=== PATIENT | female | born 1945 | race Caucasian/White ===

== ENCOUNTER 2019-10-11 19:34 | Inpatient (IN) | payer MEDICARE, BC, SELFPAY ==
[2019-10-11] VITALS (13 sets, daily range): BP systolic 139–149; BP diastolic 67–78; PULSE 84–107; RESP 18–34; TEMP 36.2–36.8; O2SAT 78–100; BMI 23.8; BMI 24.7
--- NOTE | 2019-10-11 19:50 | EKG12_ITS ---
Test Reason : Blood Pressure : / mmHG Vent. Rate : 098 BPM Atrial Rate : 098 BPM P-R Int : 130 ms QRS Dur : 066 ms QT Int : 344 ms P-R-T Axes : 067 054 080 degrees QTc Int : 439 ms Sinus rhythm with Premature atrial complexes Nonspecific ST abnormality Abnormal ECG Confirmed by SARAHI MORENO, GREGORIO ([id number]), newspaper editor TANO MARIE ([id number]) on 10/13/2019 8:56:48 AM Referred By: Jaciel Lyons Confirmed By:GREGORIO CMCLAIN MD
--- NOTE | 2019-10-11 19:51 | ED.VIS.DYS ---
History of Present Illness Chief Complaint: Cough Informant: Patient, Spouse/S.O., Relative Onset: Weeks - several Timing: Continuous Quality: - - sob x several days, worse today Current Severity: Moderate Maximum Severity: Moderate Worsened by: Coughing, Exertion Relieved by: Rest Associated Symptoms: Cough, Rhinorrhea, - - generalized weakness. Negative for: Fever Chest Pain: None Narrative: Patient had a left pneumonectomy 50 years or so ago because of bleeding and now has a bronchiectasis. She does not follow with a juvenile justice specialist and states she does not see her PCP anymore. She has a chronic cough but has felt like she had a respiratory illness for several weeks. Now that she has been short of breath for several days and it is worse now, she presents to the ER. States she has been malaised and fatigued and sitting more than usual for the last couple days because of that, and has had some swelling in her legs presumably related to sitting. She has no known heart disease. She denies any fevers or chest pain. The cough is nonproductive. - Past Medical History (1) HLD (hyperlipidemia) Status: Chronic (2) Bronchiectasis Status: Chronic Past Medical History - Allergies and Home Meds Allergies/Adverse Reactions: Allergies Penicillins Allergy (Verified 10/11/19 19:37) Hives Sulfa (Sulfonamide Antibiotics) Allergy (Verified 10/11/19 19:37) Hives Primary Care Physician: NOT,DEFINED [NON-STAFF] - Lives: With Family Smoking Status: Never smoker Review of Systems General: Reports: Malaise. Denies: Chills, Fever, Sweats Eyes: Denies: Visual changes - bilaterally, Diplopia ENT: Reports: Left ear pain - Chronic, unchanged; I keep cotton in it all the time because it hurts when air hits it. Denies: Rhinorrhea, Sore throat Cardiovascular: Denies: Chest pain, Palpitations Respiratory: Reports: Dyspnea, Cough, Dyspnea on exertion. Denies: Sputum Gastrointestinal: Denies: Abdominal pain, Nausea, Vomiting, Diarrhea, Melena, Hematochezia Genitourinary: Denies: Dysuria, Hematuria, Frequency Musculoskeletal: Reports: Swelling. Denies: Neck pain, Back pain, Extremity Pain Skin: Denies: Rash, Wounds Neurological: Denies: Headache, Weakness, Numbness Physical Exam Vital Signs/Narrative: Vital Signs Temp Pulse Resp BP Pulse Ox 10/11/19 19:47 32 H 78 10/11/19 19:35 97.1 F L 105 H 18 149/77 H 85 Inital Vital Signs reviewed: Yes General: Well nourished, Well developed, Cachectic - Thin, Acute Distress - Mild respiratory. Appears malaised. Head: Normocephalic, Atraumatic Eyes: Perrl, EOMI ENT: Moist mucous membranes, - - Posterior oropharynx clear, no erythema. Airway patent without stridor. Right TM and EAC normal. After pt removes cotton from left EAC, it is unremarkable and the tympanic membrane is white opaque but without erythema or perforation/discharge. Neck: Supple, Nontender, No lymphadenopathy, No JVD, - - Trachea relatively midline Cardiovascular: Regular rate, Regular rhythm, No murmurs Respiratory: Chest nontender, Rales - caudal half of right lung, Rhonchi - Throughout right lung, Wheezing - Expiratory, Diminished - Throughout left side Abdomen: Soft, Nontender, Nondistended, Normal bowel sounds Back: Nontender, Normal Inspection Extremities: Nontender, Edema - 1+ bilateral lower extremities to knees, symmetric Skin: Normal color, No rash, No Trauma Neurological: Alert, Oriented x3, Cranial nerves II-XII grossly intact, Normal Strength - Symmetric, weak all over, Normal Sensation Psychological: Normal affect, Normal Mood Diagnostic/Tx/Re-eval Chest X-Ray - ED: 1 View, Read by ED Physician, Chronic Changes, Right Infiltrate 10/11/19 20:10 Chest 1 View (Portable) [RAD] Stat Laboratory Results 10/11/19 10/11/19 10/11/19 19:55 19:55 19:55 WBC 12.0 H RBC 4.84 Hgb 14.6 Hct 46.9 MCV 96.9 MCH 30.2 MCHC 31.1 L RDW Std Deviation 55.7 H RDW Coeff of James 15.7 H Plt Count 222 MPV 10.9 Immature Gran % (Auto) 1.200 H Neut % (Auto) 78.9 H Lymph % (Auto) 9.1 L Bullitt % (Auto) 10.4 H Eos % (Auto) 0.1 Baso % (Auto) 0.3 Absolute Neuts (auto) 9.5 H Absolute Lymphs (auto) 1.10 Nucleated RBC % 0.2 PT 13.7 INR 1.1 APTT 25.7 Specimen Type Sample Site pH Bicarbonate Actual POC Total CO2 Base Excess O2 Saturation ABG pCO2 ABG pO2 Segundo Test O2 Delivery Device Blood Gas Notified Whom Sodium 143 Potassium 3.7 Chloride 105 Carbon Dioxide 36.0 H Anion Gap 2 L BUN 24 H Creatinine 0.51 L Estim Creat Clear Calc 36.68 Est GFR (MDRD) Af Amer 152 Est GFR (MDRD) Non-Af 125 BUN/Creatinine Ratio 47.2 H Glucose 123 H Lactic Acid Calcium 9.5 Total Bilirubin 0.50 AST 20 ALT 39 Alkaline Phosphatase 88 Troponin I 0.157 H B-Natriuretic Peptide Total Protein 7.2 Albumin 3.4 Globulin 3.8 Albumin/Globulin Ratio 0.9 Urine Color Urine Clarity Urine pH Ur Specific [place] Urine Protein Urine Glucose (UA) Urine Ketones Urine Occult Blood Urine Nitrite Urine Bilirubin Urine Urobilinogen Ur Leukocyte Esterase 10/11/19 10/11/19 10/11/19 19:55 19:55 20:06 WBC RBC Hgb Hct MCV MCH MCHC RDW Std Deviation RDW Coeff of James Plt Count MPV Immature Gran % (Auto) Neut % (Auto) Lymph % (Auto) Bull[place] % (Auto) Eos % (Auto) Baso % (Auto) Absolute Neuts (auto) Absolute Lymphs (auto) Nucleated RBC % PT INR APTT Specimen Type ART Sample Site L Radial pH 7.43 Bicarbonate Actual 38.4 H POC Total CO2 40 Base Excess 14 H O2 Saturation 69 L ABG pCO2 58.3 H ABG pO2 37 L* Segundo Test POS O2 Delivery Device Room Air Blood Gas Notified Whom ED Sodium Potassium Chloride Carbon Dioxide Anion Gap BUN Creatinine Estim Creat Clear Calc Est GFR (MDRD) Af Amer Est GFR (MDRD) Non-Af BUN/Creatinine Ratio Glucose Lactic Acid 1.2 Calcium Total Bilirubin AST ALT Alkaline Phosphatase Troponin I B-Natriuretic Peptide 483.5 H Total Protein Albumin Globulin Albumin/Globulin Ratio Urine Color Urine Clarity Urine pH Ur Specific [place] Urine Protein Urine Glucose (UA) Urine Ketones Urine Occult Blood Urine Nitrite Urine Bilirubin Urine Urobilinogen Ur Leukocyte Esterase 10/11/19 20:40 WBC RBC Hgb Hct MCV MCH MCHC RDW Std Deviation RDW Coeff of James Plt Count MPV Immature Gran % (Auto) Neut % (Auto) Lymph % (Auto) [place] % (Auto) Eos % (Auto) Baso % (Auto) Absolute Neuts (auto) Absolute Lymphs (auto) Nucleated RBC % PT INR APTT Specimen Type Sample Site pH Bicarbonate Actual POC Total CO2 Base Excess O2 Saturation ABG pCO2 ABG pO2 Segundo Test O2 Delivery Device Blood Gas Notified Whom Sodium Potassium Chloride Carbon Dioxide Anion Gap BUN Creatinine Estim Creat Clear Calc Est GFR (MDRD) Af Amer Est GFR (MDRD) Non-Af BUN/Creatinine Ratio Glucose Lactic Acid Calcium Total Bilirubin AST ALT Alkaline Phosphatase Troponin I B-Natriuretic Peptide Total Protein Albumin Globulin Albumin/Globulin Ratio Urine Color Yellow Urine Clarity Clear Urine pH 5.0 Ur Specific [place] 1.030 Urine Protein 30 H Urine Glucose (UA) Normal Urine Ketones 5 H Urine Occult Blood 25 H Urine Nitrite Negative Urine Bilirubin Negative Urine Urobilinogen 1 H Ur Leukocyte Esterase 25 H - Rhythm Strip Rhythm Strip: Sinus Tach Rate: 105 Ectopy: None - EKG Initial EKG Interpretation: No Acute Injury Pattern, Sinus Tachycardia Prior: Unchanged Treatment - Dyspnea: Oxygen, Albuterol, Atrovent Repeat Evaluation: Improved - Medical Decision Making Patient doing much better after breathing treatment but still hypoxic. However, she is doing well on a nasal cannula, at 98% now that we have a good reading. Initially we did not so we did an ABG before putting her on oxygen and her oxygen saturations were very low at 69% with a PO2 of 37. She was immediately put on oxygen prior to getting the results of that. Her x-ray shows chronic changes in the right lung, I think it looks more dense and consistent with infiltrate, radiology's interpretation was that there was no superimposed acute pulmonary process. Clinically I think treating her like pneumonia is appropriate given the history. She does not require ICU right now given her vital signs and clinical stability. Discussed with hospitalist for admission and started on antibiotics along with Solu-Medrol. Given its adequate coverage for community-acquired pneumonia, I started her on Rocephin and azithromycin, but given her bronchiectasis I agree with the next dose being Zosyn instead of Rocephin. Blood cultures were sent prior to starting antibiotics. ED Disposition - Plan for ED Patient: Disposition: [facility] Diagnosis: Bronchiectasis, Sepsis due to pneumonia, CAP (community acquired pneumonia), Acute hypoxemic respiratory failure Referrals: NOT,DEFINED [NON-STAFF] -
--- NOTE | 2019-10-11 20:10 | RAD_ITS ---
STUDY: X-RAY CHEST REASON FOR EXAM: Female, 74 years old. Shortness of breath, cough, Hx bronchiectasis and left pneumonectomy TECHNIQUE: Single AP portable view of the chest. COMPARISON: 02/24/2016 FINDINGS: Stable opacification in the left hemithorax due to previous pneumonectomy. Stable pleural calcifications. Chronic interstitial changes in the right lung without a superimposed infiltrate or effusion. There is no demonstrated pleural abnormality. Normal size heart. Normal mediastinum and linda. Normal visualized pulmonary arteries. There is atherosclerotic calcification of the aortic arch with tortuosity. There are diffuse degenerative changes of the visualized thoracic spine. Normal visualized ribs, clavicles, and shoulders. There is no demonstrated abnormality of the visualized soft tissue structures of the upper abdomen. RAD/Chest 1 View (Portable) IMPRESSION: Chronic interstitial changes throughout the right lung without a superimposed acute pulmonary process Changes consistent with previous left pneumonectomy Electronically Signed: Marcos Ott MD at 20:56 EST , Service support ,
[2019-10-11 20:11] LABS: Absolute Neutrophil Count 9.5 X10^3/uL (2.0-7.7); Basophil# 0.04 X10^3/uL; Basophil% 0.3 % (0-1); Eosinophil# 0.01 X10^3/uL; Eosinophils% 0.1 % (0-5); Hematocrit 46.9 % (37-47); Hemoglobin 14.6 g/dL (12.0-15.0); Lymphocyte % 9.1 % (19-41); Mean Corp Hgb Conc 31.1 g/dL (32-36); Mean Corpuscular Hgb 30.2 pg (27.0-32.0); Mean Corpuscular Volume 96.9 fL (81-99); Mean Platelet Vol. 10.9 fl (6.2-12.0); Monocyte# 1.25 X10^3/uL; Monocyte% 10.4 % (0-10); NRBC Flagged by Analyzer 0.2 % (0-5); Neutrophil % 78.9 % (47-70); Platelet Count 222 K/mm3 (150-450); RBC Distribution Width CV 15.7 % (11.6-14.6); RBC Distribution Width SD 55.7 fl (35.1-43.9); Red Blood Count 4.84 M/mm3 (4.2-5.4)
--- NOTE | 2019-10-11 20:11 | CPS ---
critical results read back to Dr. Powell
[2019-10-11 20:15] LABS: International Normalized Ratio 1.1; Prothrombin Time (Protime)PT. 13.7 SECONDS (11.7-14.9)
[2019-10-11 20:16] LABS: Allen Test POS; Base Excess 14 mmol/L (-2 to +2); Bicarbonate 38.4 mmol/L (22-26); Blood Gas Specimen Type ART; O2 Delivery Device Room Air; PO2 37 mmHG (75-100); SITE L Radial; SO2 69 % (95-99); Total Carbon Dioxide 40 mmol/L; pCO2 58.3 mmHg (35-45); pH 7.43 (7.35-7.45)
[2019-10-11 20:16] LABS: Partial Thromboplast Time 25.7 Seconds (24.1-36.2)
[2019-10-11 20:27] LABS: ALB/GLOB Ratio 0.9 RATIO (0.9-2.4); AST(SGOT) 20 U/L (15-37); Alanine Aminotransfer ALT/SGPT 39 U/L (13-56); Albumin, Serum 3.4 g/dL (3.2-5.0); Alkaline Phosphatase 88 U/L (45-117); Anion Gap 2 (5-15); BUN 24 mg/dL (7-18); BUN/Creat Ratio 47.2 RATIO (10-20); Calcium,Total 9.5 mg/dL (8.5-10.1); Chloride 105 mmol/L (98-107); Creatinine, Serum 0.51 mg/dL (0.55-1.02); EST Glomerular Filtration Rate 125 mL/min (>60); Est Glom Filt Rate - Afr Amer 152 mL/min (>60); Estimated Creatinine Clearance 36.68 ml/min; Globulin 3.8 g/dL (2.2-4.2); Glucose 123 mg/dL (74-106); Potassium 3.7 mmol/L (3.5-5.1); Protein, Total 7.2 g/dL (6.4-8.2); Sodium Level 143 mmol/L (136-145)
[2019-10-11] MEDS: Ipratropium/Albuterol Sulfate 3 ML AMPUL.NEB INHALATION (20:30)
[2019-10-11 20:31] LABS: Lactic Acid 1.2 mmol/L (0.4-1.9)
[2019-10-11 20:39] LABS: BNP,B-Type NATRIURETIC PEPTIDE 483.5 pg/mL (0-100)
[2019-10-11] MEDS: Ceftriaxone 1 GM/50 ML BAG IV (20:46)
--- NOTE | 2019-10-11 20:46 | HP.PCM_ITS ---
Problem List (1) Sepsis due to pneumonia Status: Acute (2) Bronchiectasis Status: Chronic (3) CAP (community acquired pneumonia) Status: Acute (4) Acute hypoxemic respiratory failure Status: Acute (5) S/P lobectomy of lung Status: Chronic (6) HLD (hyperlipidemia) Status: Chronic History of Present Illness Date of Admission: 10/11/19 Chief Complaint: SOB The patient is a 74 year old F with a significant history of lobectomy x2 of the left lung secondary to pulmonary hemorrhage; and bronchiectasis of the right lung who presented to emergency department with a 2 to 3-week history of shortness of breath. Associated with her symptoms is productive cough of clear sputum. Further she has weakness, fatigue, dysgeusia; anorexia and a runny nose. She denies any sore throat, diarrhea or constipation. At home patient does not use oxygen. However at the emergency department she was severely hypoxic with oxygen saturation of 78%. ABG showed a PO2 of 37. Patient required supplemental oxygen. She had tachycardia and tachypnea. Troponin and BNP was elevated. White count was elevated at 12. Chest x-ray was interpreted as chronic interstitial changes throughout the right lung without superimposed acute pulmonary process; changes consistent with previous left pneumonectomy. At the emergency department patient was initiated on azithromycin and ceftriaxone . Patient had lobectomy of the left lung at age 15. At about age 39 the rest of the left lung was taken out. She reported that she had the lung surgeries because of bleeding. Past Medical History Past Medical History (Chronic Problems): Chronic Problems Bronchiectasis (Chronic) S/P lobectomy of lung (Chronic) HLD (hyperlipidemia) (Chronic) Allergies Penicillins Allergy (Verified 10/11/19 19:37) Hives Sulfa (Sulfonamide Antibiotics) Allergy (Verified 10/11/19 19:37) Hives Home Medications: Ambulatory Orders Medication Instructions Recorded Cetirizine HCl [Zyrtec] 5 mg PO DAILY PRN 10/11/19 Surgical History: appendectomy, hysterectomy - Partial, - - Lobectomy of the left lung x2; and right foot surgery Lives: With Family Smoking Status: Never smoker Drugs: None - *Family History Maternal History Items: Cancer - Her mother from ovarian cancer Paternal History Items: Heart Disease - Her father had a heart attack Review of Systems Constitutional: Reports: Anorexia, Weakness, Fatigue. Denies: Chills, Fever, Weight Change HEENT: Reports: Sinus Drainage. Denies: Head Aches, Sinus Congestion Cardiovascular: Denies: Chest Pain, Palpitations Respiratory: Reports: Cough, Shortness of Breath, Sputum production - Clear sputum Gastrointestinal: Denies: Abdominal Pain, Nausea, Vomiting Genitourinary: Denies: Dysuria Musculoskeletal: Denies: Joint Pain, Joint Tenderness Skin: Denies: Rash, Wounds Neurological: Denies: Numbness, Tingling, Focal weakness Psychiatric: Denies: Anxiety, Depression, Homicidal Ideations, Suicidal Ideations Hematologic/ Lymphatic: Denies: Easy Bruising, Easy Bleeding VTE Information - Inpt Only VTE Present on Admission: No VTE Mechan Device Prophylaxis: None VTE Pharm Prophylaxis ordered?: Yes Patient Problems: Active and Suspected Problems Sepsis due to pneumonia (Acute) CAP (community acquired pneumonia) (Acute) Acute hypoxemic respiratory failure (Acute) - Physical Exam Vitals/I&O's: Vital Signs Temp Pulse Resp BP Pulse Ox 98.3 F 93 24 H 149/77 H 100 10/11/19 20:16 10/11/19 20:31 10/11/19 20:31 10/11/19 19:35 10/11/19 20:05 Oxygen Flow Rate (L/min) 2 Oxygen Delivery Method Nasal Cannula Weight: 57.153 kg Body Mass Index (BMI) 23.8 General: Alert, Oriented x3, Cooperative HEENT: Atraumatic, PERRLA, EOMI, Normocephalic Neck: Supple, No JVD, Negative Carotid Bruits Lungs: Rhonchi, Short of Breath, Tachypneic, Using Accessory Muscles, Wheezes Cardiovascular: Regular Rhythm, Normal S1, Normal S2, No murmurs, Tachycardic Abdomen: Bowel Sounds Present, Soft, Non Tender Extremities: Capillary Refill Less than 3 Seconds, Edema - Right leg Skin: No rashes, No breakdown Musculoskeletal: No Tenderness to Palpation of Joints or Extremities Neurological: Cranial nerves II-XII grossly intact Psych/Mental Status: Normal Affect, Appropriate Laboratory Results 10/11/19 19:55: WBC 12.0 H, RBC 4.84, Hgb 14.6, Hct 46.9, MCV 96.9, MCH 30.2, MCHC 31.1 L, RDW Std Deviation 55.7 H, RDW Coeff of James 15.7 H, Plt Count 222, MPV 10.9, Immature Gran % (Auto) 1.200 H, Neut % (Auto) 78.9 H, Lymph % (Auto) 9.1 L, Hawkins % (Auto) 10.4 H, Eos % (Auto) 0.1, Baso % (Auto) 0.3, Absolute Neuts (auto) 9.5 H, Absolute Lymphs (auto) 1.10, Nucleated RBC % 0.2 10/11/19 19:55: PT 13.7, INR 1.1, APTT 25.7 10/11/19 19:55: Sodium 143, Potassium 3.7, Chloride 105, Carbon Dioxide 36.0 H, Anion Gap 2 L, BUN 24 H, Creatinine 0.51 L, Estim Creat Clear Calc 36.68, Est GFR (MDRD) Af Amer 152, Est GFR (MDRD) Non-Af 125, BUN/Creatinine Ratio 47.2 H, Glucose 123 H, Calcium 9.5, Total Bilirubin 0.50, AST 20, ALT 39, Alkaline Phosphatase 88, Troponin I 0.157 H, Total Protein 7.2, Albumin 3.4, Globulin 3.8, Albumin/Globulin Ratio 0.9 10/11/19 19:55: Lactic Acid 1.2 10/11/19 19:55: B-Natriuretic Peptide 483.5 H 10/11/19 20:06: Specimen Type ART, Sample Site L Radial, pH 7.43, Bicarbonate Actual 38.4 H, POC Total CO2 40, Base Excess 14 H, O2 Saturation 69 L, ABG pCO2 58.3 H, ABG pO2 37 L*, Segundo Test POS, O2 Delivery Device Room Air, Blood Gas Notified Whom ED Current Medications Azithromycin 500 mg/ Dextrose 255 mls @ 250 mls/hr IV X1 ONE Stop: 10/11/19 21:33 Ceftriaxone Sodium (Rocephin) 1 gm in 50 mls @ 100 mls/hr IV X1 ONE Stop: 10/11/19 21:01 Assessment/Plan All Active Problems Sepsis due to pneumonia (Acute) CAP (community acquired pneumonia) (Acute) Acute hypoxemic respiratory failure (Acute) The patient is a 74 year old F with a significant history of lobectomy x2 of the left lung secondary to pulmonary hemorrhage; and bronchiectasis of the right lung who presented to emergency department with a 2 to 3-week history of shortness of breath; productive cough of clear sputum; weakness, fatigue, dysgeusia; anorexia; rhinorrhea and found to be severely hypoxic and with elevated troponin as well as a tachycardia and tachypnea consistent with sepsis secondary to acute exacerbation of bronchiectasis and probably pneumonia. Sepsis secondary to acute exacerbation of bronchiectasis and probably community acquired pneumonia Lactic acid: 1.2 RR: Highest of 34 Tachycardia: Highest heart rate of 107 Patient meets sirs criteria with tachycardia and tachypnea. Her white count is borderline at 12. Likely source of infection is her lungs. Oxygen saturation: 78. PO2 of 37. Blood culture ?2 obtained at the emergency department; follow. Urinalysis showed proteinuria; occult blood and some ketonuria; otherwise unremarkable for infection. Urine culture was ordered at the emergency department follow Chest x-ray: Interpreted by radiologist as chronic interstitial changes throughout her right lung without superimposed acute pulmonary process. Changes consistent with previous left pneumonectomy. Respiratory Gram stain and culture ordered. Legionella antigen screen and Strep antigen ordered. Mycoplasma antibody ordered. Antibiotics: Received azithromycin and ceftriaxone at the emergency department. Because of high risk of Pseudomonas secondary to bronchiectasis will start patient on cefepime. Of note patient is allergic to penicillins. We will continue azithromycin. Will consult pulmonary medicine to optimize management. Likely also patient may have to follow-up with a Auto Locator. DuoNeb scheduled. Albuterol as needed Mucinex ordered Because of rhonchi and wheezes at the emergency department patient was given Solu-Medrol. We will continue Solu-Medrol while inpatient. Influenza screen was ordered emergency department; follow. Trend CBC and BMP Acute hypoxemic respiratory failure Patient with tachypnea; use of accessory muscles of respiration and PO2 of 37. Supplemental oxygen as necessary. Other management as above. Elevated troponin On presentation her troponin was 0.157. Patient has no complaint of chest pain. T wave flattening in V1 and V2. Mild T wave inversion in aVL but no other inversion in lateral leads. Review of old records show the patient had a stress test on 03/15/2016. The stress test was essentially unremarkable except that the gated Cardiolite study at peak stress was not obtained. Likely secondary to demand ischemia. Trend troponin. Rhinorrhea: Flonase ordered. Claritin continued Edema of the right leg Mild. Likely secondary to previous injury of left leg. Elevate right leg. Elevated BNP Her BNP on presentation was 483.5 (normal 0-100). No other previous records to compare with. Likely from her pulmonary disease or sepsis. Review of old records show that an echocardiogram was done on 03/15/2016. The echocardiogram showed a ventricular ejection fraction of 70%. Trivial mitral valve insufficiency. Mild tricuspid valve insufficiency. Right ventricular systolic pressure was estimated at 39 mmHg. Mild diffuse aortic valve thickening. Mild focal aortic valve calcification. Aortic sclerosis without stenosis. Trivial pericardial effusion without indication of cardiac tamponade. Will get an echocardiogram. DVT prophylaxis Continue with Lovenox ordered Code Visit Inpatient E&M: 63554 Init Hosp L3
[2019-10-11 20:47] LABS: Bacteria 0 SEEN /hpf (None Seen); Squamous Epithelial Cells - UA 0 SEEN /hpf (5-10)
[2019-10-11 20:52] LABS: Color, Urine Yellow (Yellow); Glucose, Dipstick Normal (Normal); Ketone-Dipstick 5 mg/dl (Negative); Leukocyte Esterase-Dipstick 25 /ul (Negative); Nitrite-Dipstick Negative (Negative); Occult Blood-Urine 25 /ul (Negative); Protein-Dipstick 30 mg/dl (Negative); Urine Bilirubin Dipstick Negative (Negative); Urine Clarity Clear (Clear); Urine Urobilinogen 1 mg/dl (Normal)
[2019-10-11 21:04] LABS: Mucous, Urine 1+ /hpf (<or=2+); Red Blood Cells-Urine 0-5 SEEN /hpf (0-5); White Blood Cells 0-5 SEEN /hpf (0-5)
[2019-10-11] MEDS: MethylPREDNISolone 125 MG/2 ML Vial IV (21:10)
--- NOTE | 2019-10-11 22:14 | ECHOD_ITS ---
Reason For Study: DYSPNEA Procedure This was a 2D Doppler, Color Flow transthoracic echocardiogram. The exam was of poor technical quality due to position of heart. Exam performed portable in patient room. Left Ventricle Normal LV size. Left ventricular systolic function is normal. Stage 1 diastolic dysfunction. The estimated ejection fraction is 60 %. No regional wall motion abnormalities noted. Right Ventricle Normal RV size. Normal systolic function. Atria Normal left atrium. Normal right atrium. Mitral Valve Normal mitral valve. Tricuspid Valve Normal tricuspid valve. Moderate (2+) tricuspid valve insufficiency. Pulmonary artery systolic pressure is 62 mmHg. Aortic Valve Normal aortic valve. Trisinus/trileaflet aortic valve. Pulmonic Valve Normal pulmonic valve. Pericardium/Pleural No pericardial effusion. Small left pleural effusion. MMode/2D Measurements & Calculations LVIDd: 3.3 cm IVSd: 1.1 cm Ao root diam: 3.5 cm LVIDs: 1.8 cm LVPWd: 1.1 cm RVDd: 4.0 cm FS: 44.5 % LA dimension(2D): 2.9 cm RA A4 area: 11.6 cm2 Time Measurements MV dec time: 0.24 sec Doppler Measurements & Calculations MV E max ilan: 81.6 cm/sec Lat Peak E' Ilan: 6.2 cm/sec Med Peak E' Ilan: 3.9 cm/sec MV A max ilan: 117.0 cm/sec E/E' lat: 13.2 E/E' med: 20.7 MV E/A: 0.70 Ao V2 max: 129.9 cm/sec LV V1 max: 108.4 cm/sec TR max ilan: 380.0 cm/sec Ao max P.7 mmHg LV V1 max P.7 mmHg TR max P.7 mmHg Interpretation Summary Normal LV size. Left ventricular systolic function is normal. Stage 1 diastolic dysfunction. The estimated ejection fraction is 60 %. No evidence of dextrocardia per echo probe positioning Ordering Physician: Jaciel Lyons Referring Physician: Jaciel Lyons Performed By: April Auguste, RDCS, RVT
[2019-10-12] VITALS (15 sets, daily range): BP systolic 126–137; BP diastolic 53–82; PULSE 74–102; RESP 16–22; TEMP 36.3–36.9; O2SAT 71–97
[2019-10-12] MEDS: 0.9% Saline Lock 10 ML Syringe IV ×2 (00:29→13:33)
[2019-10-12 02:31] LABS: Absolute Lymphocyte Count 0.39 X10^3/uL (0.83-4.51); Absolute Neutrophil Count 9.1 X10^3/uL (2.0-7.7); Basophil# 0.01 X10^3/uL; Basophil% 0.1 % (0-1); Hematocrit 41.4 % (37-47); Hemoglobin 12.9 g/dL (12.0-15.0); Lymphocyte # 0.39 X10^3/ul (4.0); Mean Corp Hgb Conc 31.2 g/dL (32-36); Mean Corpuscular Hgb 30.1 pg (27.0-32.0); Mean Corpuscular Volume 96.7 fL (81-99); Mean Platelet Vol. 10.8 fl (6.2-12.0); Monocyte# 0.13 X10^3/uL; Monocyte% 1.3 % (0-10); NRBC Flagged by Analyzer 0 % (0-5); Neutrophil # 9.14 X10^3/uL (2.7-7.7); Neutrophil % 93.6 % (47-70); POSITIVE DIFFERENTIAL YES; Platelet Count 177 K/mm3 (150-450); RBC Distribution Width CV 15.6 % (11.6-14.6); Red Blood Count 4.28 M/mm3 (4.2-5.4); White Blood Count 9.8 K/mm3 (4.4-11.0)
[2019-10-12 02:36] LABS: Differential Indicated SCAN CRITERIA MET
[2019-10-12 02:51] LABS: Anion Gap 1 (5-15); BUN 17 mg/dL (7-18); BUN/Creat Ratio 59.9 RATIO (10-20); Calcium,Total 8.5 mg/dL (8.5-10.1); Chloride 106 mmol/L (98-107); Creatinine, Serum 0.28 mg/dL (0.55-1.02); EST Glomerular Filtration Rate 246 mL/min (>60); Est Glom Filt Rate - Afr Amer 297 mL/min (>60); Estimated Creatinine Clearance 36.68 ml/min; Glucose 130 mg/dL (74-106); Sodium Level 143 mmol/L (136-145)
[2019-10-12 03:17] LABS: Differential Comment SCANNED
[2019-10-12] MEDS: Ipratropium/Albuterol Sulfate 3 ML AMPUL.NEB INHALATION ×4 (07:22→19:22)
--- NOTE | 2019-10-12 08:59 | PCM.PROGNOTE ---
Patient Problems: Active and Suspected Problems Sepsis due to pneumonia (Acute) CAP (community acquired pneumonia) (Suspected) Acute hypoxemic respiratory failure (Acute) Subjective: Chief complaint: Follow-up after admission for acute hypoxic and hypercapnic respiratory failure, acute exacerbation of bronchiectasis and suspected pneumonia. Patient seen and examined. No acute events overnight. This morning, she mentioned that she is feeling better, shortness of breath started to improve. Still having cough with minimal sputum. Denies fever or chills. She is afebrile, blood pressure and heart rate are stable, pulse ox is 92% on 4 L. - Physical Exam Vitals/I&O's: Vital Signs Temp Pulse Resp BP Pulse Ox 98.5 F 92 22 H 136/82 H 92 10/12/19 04:05 10/12/19 07:22 10/12/19 07:22 10/12/19 04:05 10/12/19 07:30 Oxygen Flow Rate (L/min) 2 Oxygen Delivery Method Nasal Cannula Weight: 130 lb 11.746 oz Body Mass Index (BMI) 24.7 Intake and Output for Last 24 Hours 10/10/19 10/11/19 10/12/19 23:59 23:59 23:59 Intake Total 550 / 550 355 / 355 Balance 550 / 550 355 / 355 General: Alert, Oriented x3, Cooperative, - - Mildly short of breath. HEENT: Atraumatic, PERRLA, EOMI, Normocephalic Oral: Moist Mucosa, No Gingival or Mucosal Lesions/ Ulcerations Neck: Supple, No JVD, Trachea Midline, Thyroid Normal Size and Texture Lungs: Diminished, Rales, Rhonchi, Short of Breath, - - Absent breath sounds on the whole left side, coarse crackles and rhonchi in the right lung, Rales. Cardiovascular: Regular rate, Regular Rhythm, Normal S1, Normal S2, PMI Normal Abdomen: Bowel Sounds Present, Soft, Non Tender, Non-Distended, No Hepato-splenomegaly Extremities: No clubbing, No cyanosis, No edema Skin: No rashes, No breakdown Lymphatic: No Cervical, Supraclavicular, or Inguinal Adenopathy Neurological: Cranial nerves II-XII grossly intact, Motor Exam 5/5 strength throughout Psych/Mental Status: Normal Affect, Appropriate, Alert and oriented to time, place, person, mood and affect Microbiology Past 72 Hours 10/11/19 20:40 Urine, Random Streptococcus pneumoniae Antigen (M - Final 10/11/19 20:40 Urine, Random Legionella Antigen - Final 10/11/19 21:18 Mucosa - Nasopharyngeal Influenza Types A,B Direct FA (CARYN) - Final Laboratory Results 10/11/19 19:55: WBC 12.0 H, RBC 4.84, Hgb 14.6, Hct 46.9, MCV 96.9, MCH 30.2, MCHC 31.1 L, RDW Std Deviation 55.7 H, RDW Coeff of James 15.7 H, Plt Count 222, MPV 10.9, Immature Gran % (Auto) 1.200 H, Neut % (Auto) 78.9 H, Lymph % (Auto) 9.1 L, Cook % (Auto) 10.4 H, Eos % (Auto) 0.1, Baso % (Auto) 0.3, Absolute Neuts (auto) 9.5 H, Absolute Lymphs (auto) 1.10, Nucleated RBC % 0.2 10/11/19 19:55: PT 13.7, INR 1.1, APTT 25.7 10/11/19 19:55: Sodium 143, Potassium 3.7, Chloride 105, Carbon Dioxide 36.0 H, Anion Gap 2 L, BUN 24 H, Creatinine 0.51 L, Estim Creat Clear Calc 36.68, Est GFR (MDRD) Af Amer 152, Est GFR (MDRD) Non-Af 125, BUN/Creatinine Ratio 47.2 H, Glucose 123 H, Calcium 9.5, Total Bilirubin 0.50, AST 20, ALT 39, Alkaline Phosphatase 88, Troponin I 0.157 H, Total Protein 7.2, Albumin 3.4, Globulin 3.8, Albumin/Globulin Ratio 0.9 10/11/19 19:55: Lactic Acid 1.2 10/11/19 19:55: B-Natriuretic Peptide 483.5 H 10/11/19 20:06: Specimen Type ART, Sample Site L Radial, pH 7.43, Bicarbonate Actual 38.4 H, POC Total CO2 40, Base Excess 14 H, O2 Saturation 69 L, ABG pCO2 58.3 H, ABG pO2 37 L*, Segundo Test POS, O2 Delivery Device Room Air, Blood Gas Notified Whom ED 10/11/19 20:40: Urine Color Yellow, Urine Clarity Clear, Urine pH 5.0, Ur Specific [place] 1.030, Urine Protein 30 H, Urine Glucose (UA) Normal, Urine Ketones 5 H, Urine Occult Blood 25 H, Urine Nitrite Negative, Urine Bilirubin Negative, Urine Urobilinogen 1 H, Ur Leukocyte Esterase 25 H, Urine RBC 0-5 SEEN, Urine WBC 0-5 SEEN, Ur Squamous Epith Cells 0 SEEN, Urine Bacteria 0 SEEN, Urine Mucus 1+ 10/11/19 23:42: Troponin I 0.153 H 10/12/19 02:20: Mycoplasma pneumon IgG Pending, Mycoplasma pneumon IgM Pending 10/12/19 02:20: WBC 9.8, RBC 4.28, Hgb 12.9, Hct 41.4, MCV 96.7, MCH 30.1, MCHC 31.2 L, RDW Std Deviation 55.0 H, RDW Coeff of James 15.6 H, Plt Count 177, MPV 10.8, Immature Gran % (Auto) 1.000 H, Neut % (Auto) 93.6 H, Lymph % (Auto) 4.0 L, Cook % (Auto) 1.3, Eos % (Auto) 0.0, Baso % (Auto) 0.1, Absolute Neuts (auto) 9.1 H, Absolute Lymphs (auto) 0.39 L, Nucleated RBC % 0, Differential Comment SCANNED 10/12/19 02:20: Sodium 143, Potassium 4.0, Chloride 106, Carbon Dioxide 36.0 H, Anion Gap 1 L, BUN 17, Creatinine 0.28 L, Estim Creat Clear Calc 36.68, Est GFR (MDRD) Af Amer 297, Est GFR (MDRD) Non-Af 246, BUN/Creatinine Ratio 59.9 H, Glucose 130 H, Calcium 8.5, Troponin I 0.119 H Clinical Impression(s) from Imaging Studies Chest X-Ray 10/11/19 20:10 IMPRESSION: Chronic interstitial changes throughout the right lung without a superimposed acute pulmonary process Changes consistent with previous left pneumonectomy Electronically Signed: Marcos Ott MD at 20:56 EST , Service support , Current Medications Al Hydroxide/Mg Hydroxide (Mylanta Ii) 30 ml PO Q6H PRN PRN PRN Reason: Gastric Burning Albuterol Sulfate (Ventolin Aerosols) 2.5 mg INHALATION Q2H PRN PRN PRN Reason: SOB/Wheezing Albuterol/Ipratropium (Duoneb) 3 ml INHALATION Q4HWA.RT [facility] Last Admin: 10/12/19 07:22 Dose: 3 ml Documented by: Enoxaparin Sodium (Lovenox) 40 mg SC DAILY [facility] Fluticasone Propionate (Flonase Nasal [place]) 1 spray NASAL BID [facility] Last Admin: 10/11/19 23:05 Dose: Not Given Documented by: Glucagon () 1 mg IM .X1 PRN PRN Reason: Hypoglycemia Guaifenesin (Mucinex) 1,200 mg PO BID [facility] Last Admin: 10/11/19 23:04 Dose: Not Given Documented by: Azithromycin 500 mg/ Dextrose 255 mls @ 250 mls/hr IV Q24H [facility] Stop: 10/17/19 23:02 Cefepime HCl 1 gm/ Sodium (Chloride) 50 mls @ 100 mls/hr IV Q12 [facility] Last Infusion: 10/12/19 01:00 Dose: Infused Documented by: Dextrose (Dextrose 10%-Water) 250 mls @ 999 mls/hr IV .Q16M PRN; Protocol PRN Reason: HYPOGLYCEMIA Sodium Chloride () 250 mls @ 15 mls/hr IV .[id number] PRN PRN Reason: Saline Flush Sodium Chloride () 250 mls @ 15 mls/hr IV .[id number] PRN PRN Reason: Additional IVPB Infusion Loratadine (Claritin) 10 mg PO DAILY [facility] Melatonin (Melatonin) 3 mg PO QHS PRN PRN PRN Reason: INSOMNIA Methylprednisolone (Solu-Medrol) 40 mg IV Q8 [facility] Last Admin: 10/12/19 05:26 Dose: 40 mg Documented by: Ondansetron HCl (Zofran) 4 mg IV Q8H PRN PRN PRN Reason: NAUSEA/VOMITING Senna/Docusate Sodium (Senokot-S, Alejandra-Colace) 2 tablet PO BID PRN PRN PRN Reason: Constipation Sodium Chloride () 10 - 40 ml IV UD PRN PRN Reason: SALINE FLUSH Last Admin: 10/12/19 00:29 Dose: 10 ml Documented by: Medical Necessity - Tobacco Use Smoking Status: Never smoker Assessment/Plan All Active Problems Sepsis due to pneumonia (Acute) Acute hypoxemic respiratory failure (Acute) This is a 74 years old female patient presented to the emergency room because of shortness of breath and cough and she was found to have acute hypoxic and hypercapnic respiratory failure probably due to acute exacerbation of bronchiectasis as well as suspected pneumonia and also found to have abnormal cardiac enzymes. #1 acute hypoxic and hypercapnic respiratory failure: Likely because of acute exacerbation of bronchiectasis and probable pneumonia. In addition to history of left lung resection, patient only has one lung. Never been on oxygen before. ABG revealed pH of 7.43, PCO2 58 and PO2 of 37. Chest x-ray revealed chronic changes of the right lung, no acute infiltrate or consolidation, left pneumonectomy. EKG revealed normal sinus rhythm with PACs, no acute skin changes. Pneumococcal and Legionella antigen were negative. Nasal swab for influenza a and B were negative. Blood and urine cultures are pending. She is on bronchodilators, IV steroids and IV antibiotics. Pulmonology consulted. Plan to continue same treatment, stat sputum culture. #2 acute exacerbation of bronchiectasis versus suspected community-acquired pneumonia/sepsis: She is on IV Zithromax and cefepime as well as IV Solu-Medrol and bronchodilators. Blood and urine cultures are pending. Plan as above. #3 abnormal cardiac enzymes: Patient denied any chest pain. EKG without acute changes. Troponin is trending down. Could be due to demand ischemia secondary to hypoxia. 2D echocardiogram ordered. #4 bronchiectasis: With past history of left whole lung resection, unknown reason but patient mentioned that she had infection and bleeding in her left lung. This was long time ago back in 1980s. Never been on oxygen at home and she mentioned that no admission to the hospital for acute bronchiectasis exacerbation the last several years. Plan as above. #5 DVT prophylaxis: Subcu Lovenox. This note was generated with [employer] dictation software. It may contain incorrect words, spelling, and punctuation that were not noted in checking the note before signing. Code Visit Inpatient E&M: 49568 Subs Hosp L2
[2019-10-12] MEDS: guaiFENesin 1,200 MG Tablet 1200 MG PO ×2 (09:29→20:53)
[2019-10-12] MEDS: Loratadine 10 MG Tablet PO (09:29)
[2019-10-12] MEDS: Enoxaparin 40 MG/0.4 ML Syringe SC (09:29)
[2019-10-12] MEDS: Fluticasone 0.05% 1 SPRAY NASAL.SRY NASAL ×2 (09:36→20:52)
--- NOTE | 2019-10-12 10:51 | CON.PCM_ITS ---
Problem List (1) Bronchiectasis Status: Chronic Qualifiers: Bronchiectasis type: with acute exacerbation Qualified Code(s): J47.1 - Bronchiectasis with (acute) exacerbation (2) CAP (community acquired pneumonia) Status: Suspected Qualifiers: Laterality: right Lung location: unspecified part of lung Qualified Code(s): J18.9 - Pneumonia, unspecified organism (3) S/P lobectomy of lung Status: Chronic (4) HLD (hyperlipidemia) Status: Chronic Reason for Consult Date of Consultation: 10/12/19 Reason for Consultation: Hypoxia History of Present Illness: The patient is a 74 year old F, with past medical history listed below, who presented to [facility] on 10/11/2019 secondary to progressive shortness of breath. Patient reportedly has a chronic cough, but stated that she started to develop worsening shortness of breath since a day or 2 before Kelvin. Patient states that this was likely secondary to overdoing it with Kelvin. Patient has noted some lower extremity edema, but had related this to increased sitting. Patient denied any fevers or chest pain. Patient does have night sweats that she attributes to menopause. In the ER, patient was noted to be hypoxic. Patient did receive a breathing treatment with some improvement. Patient did have a room air ABG showing a PO2 of 37. Chest x-ray showed a history of a left pneumonectomy with possible right-sided infiltrates. Patient was initiated on Zosyn and azithromycin, along with Solu-Medrol and admitted to the PCU for further evaluation. Since being in the PCU, patient reports significant improvement in overall condition. Patient states that she is had improvement in her shortness of breath. Patient is not having much of a productive cough or sinus congestion reported. Patient does state that she tends to have difficulty during the winter and fall and has been treated for pneumonia several times previously. Patient does not use oxygen at baseline. Patient reports that she had a lobectomy in 1959 associated with hemoptysis with bronchiectasis. Patient had the upper lobe removed in 1984 and has not followed with a PCP, pulmonary or nutrition specialist since that time. Patient states that she tends to do okay on her own. Patient does refuse flu shots routinely. Patient is unclear if she is ever had a pulmonary function test previously. Ephraim hughes does not use oxygen at baseline, but readily admits that this is not checked routinely. Patient is unclear if she has any previous heart condition has not been told that she has a flipped heart. Review of systems otherwise negative from a constitutional, HEENT, respiratory, cardiovascular, GI, genitourinary, musculoskeletal, skin, neurologic, psychiatric and hematologic system unless stated above. Past Medical History Past Medical History (Chronic Problems): Chronic Problems Bronchiectasis (Chronic) S/P lobectomy of lung (Chronic) HLD (hyperlipidemia) (Chronic) Allergies Penicillins Allergy (Verified 10/11/19 19:37) Hives Sulfa (Sulfonamide Antibiotics) Allergy (Verified 10/11/19 19:37) Hives Home Medications: Ambulatory Orders Medication Instructions Recorded Cetirizine HCl [Zyrtec] 5 mg PO DAILY PRN 10/11/19 Surgical History: appendectomy, hysterectomy - Partial, - - Lobectomy of the left lung x2; and right foot surgery Lives: With Family Smoking Status: Never smoker Drugs: None - *Family History Maternal History Items: Cancer - Her mother from ovarian cancer Paternal History Items: Heart Disease - Her father had a heart attack Review of Systems Comment: See HPI Patient Problems: Active and Suspected Problems Sepsis due to pneumonia (Acute) CAP (community acquired pneumonia) (Suspected) Acute hypoxemic respiratory failure (Acute) Objective: Chest x-ray was personally reviewed and shows complete opacification of the left lung field with surgical clips. Patient has deviation of the heart towards the right with a possible right lower lobe infiltrate. Patient does not have a previous echocardiogram or pulmonary function test available for review. - Physical Exam Vitals/I&O's: Vital Signs Temp Pulse Resp BP Pulse Ox 36.3 C L 84 16 137/65 H 97 10/12/19 09:24 10/12/19 09:24 10/12/19 09:24 10/12/19 09:24 10/12/19 09:24 Oxygen Flow Rate (L/min) 2 Oxygen Delivery Method Nasal Cannula Weight: 59.3 kg Body Mass Index (BMI) 24.7 Intake and Output for Last 24 Hours 10/10/19 10/11/19 10/12/19 23:59 23:59 23:59 Intake Total 550 / 550 405 / 405 Balance 550 / 550 405 / 405 General: Alert, Oriented x3, Cooperative, - - Mild conversational dyspnea. Appears older than stated age. HEENT: Atraumatic, PERRLA, EOMI, Normocephalic, - - No scleral icterus or injection noted Oral: Moist Mucosa, No Gingival or Mucosal Lesions/ Ulcerations Neck: Supple, No Nodes, Trachea Midline, JVD, Right Lungs: - - No left-sided breath sounds noted. No right-sided wheezing, rhonchi or rales appreciated. Cardiovascular: Regular rate, Regular Rhythm, Normal S1, Normal S2, No murmurs, No rub noted, No Gallop, - - Heart sounds deviated to the right Abdomen: Bowel Sounds Present, Soft, Non Tender, Non-Distended Extremities: No clubbing, No cyanosis, Edema - 1-2+ lower extremity edema Skin: No rashes, No breakdown Musculoskeletal: No Tenderness to Palpation of Joints or Extremities Lymphatic: No Cervical, Supraclavicular, or Inguinal Adenopathy Neurological: Cranial nerves II-XII grossly intact, Neuro grossly intact, Motor Exam 5/5 strength throughout Psych/Mental Status: Alert and oriented to time, place, person, mood and affect Microbiology Past 72 Hours 10/11/19 20:40 Urine, Random Streptococcus pneumoniae Antigen (M - Final 10/11/19 20:40 Urine, Random Legionella Antigen - Final 10/11/19 21:18 Mucosa - Nasopharyngeal Influenza Types A,B Direct FA (CARYN) - Final Laboratory Results 10/11/19 19:55: WBC 12.0 H, RBC 4.84, Hgb 14.6, Hct 46.9, MCV 96.9, MCH 30.2, MCHC 31.1 L, RDW Std Deviation 55.7 H, RDW Coeff of James 15.7 H, Plt Count 222, MPV 10.9, Immature Gran % (Auto) 1.200 H, Neut % (Auto) 78.9 H, Lymph % (Auto) 9.1 L, Lane % (Auto) 10.4 H, Eos % (Auto) 0.1, Baso % (Auto) 0.3, Absolute Neuts (auto) 9.5 H, Absolute Lymphs (auto) 1.10, Nucleated RBC % 0.2 10/11/19 19:55: PT 13.7, INR 1.1, APTT 25.7 10/11/19 19:55: Sodium 143, Potassium 3.7, Chloride 105, Carbon Dioxide 36.0 H, Anion Gap 2 L, BUN 24 H, Creatinine 0.51 L, Estim Creat Clear Calc 36.68, Est GFR (MDRD) Af Amer 152, Est GFR (MDRD) Non-Af 125, BUN/Creatinine Ratio 47.2 H, Glucose 123 H, Calcium 9.5, Total Bilirubin 0.50, AST 20, ALT 39, Alkaline Phosphatase 88, Troponin I 0.157 H, Total Protein 7.2, Albumin 3.4, Globulin 3.8, Albumin/Globulin Ratio 0.9 10/11/19 19:55: Lactic Acid 1.2 10/11/19 19:55: B-Natriuretic Peptide 483.5 H 10/11/19 20:06: Specimen Type ART, Sample Site L Radial, pH 7.43, Bicarbonate Actual 38.4 H, POC Total CO2 40, Base Excess 14 H, O2 Saturation 69 L, ABG pCO2 58.3 H, ABG pO2 37 L*, Segundo Test POS, O2 Delivery Device Room Air, Blood Gas Notified Whom ED 10/11/19 20:40: Urine Color Yellow, Urine Clarity Clear, Urine pH 5.0, Ur Specific [place] 1.030, Urine Protein 30 H, Urine Glucose (UA) Normal, Urine Ketones 5 H, Urine Occult Blood 25 H, Urine Nitrite Negative, Urine Bilirubin Negative, Urine Urobilinogen 1 H, Ur Leukocyte Esterase 25 H, Urine RBC 0-5 SEEN, Urine WBC 0-5 SEEN, Ur Squamous Epith Cells 0 SEEN, Urine Bacteria 0 SEEN, Urine Mucus 1+ 10/11/19 23:42: Troponin I 0.153 H 10/12/19 02:20: Mycoplasma pneumon IgG Pending, Mycoplasma pneumon IgM Pending 10/12/19 02:20: WBC 9.8, RBC 4.28, Hgb 12.9, Hct 41.4, MCV 96.7, MCH 30.1, MCHC 31.2 L, RDW Std Deviation 55.0 H, RDW Coeff of James 15.6 H, Plt Count 177, MPV 10.8, Immature Gran % (Auto) 1.000 H, Neut % (Auto) 93.6 H, Lymph % (Auto) 4.0 L , Lane % (Auto) 1.3, Eos % (Auto) 0.0, Baso % (Auto) 0.1, Absolute Neuts (auto) 9.1 H, Absolute Lymphs (auto) 0.39 L, Nucleated RBC % 0, Differential Comment SCANNED 10/12/19 02:20: Sodium 143, Potassium 4.0, Chloride 106, Carbon Dioxide 36.0 H, Anion Gap 1 L, BUN 17, Creatinine 0.28 L, Estim Creat Clear Calc 36.68, Est GFR (MDRD) Af Amer 297, Est GFR (MDRD) Non-Af 246, BUN/Creatinine Ratio 59.9 H, Glucose 130 H, Calcium 8.5, Troponin I 0.119 H Clinical Impression(s) from Imaging Studies Chest X-Ray 10/11/19 20:10 IMPRESSION: Chronic interstitial changes throughout the right lung without a superimposed acute pulmonary process Changes consistent with previous left pneumonectomy Electronically Signed: Marcos Ott MD at 20:56 EST , Service support , Current Medications Al Hydroxide/Mg Hydroxide (Mylanta Ii) 30 ml PO Q6H PRN PRN PRN Reason: Gastric Burning Albuterol Sulfate (Ventolin Aerosols) 2.5 mg INHALATION Q2H PRN PRN PRN Reason: SOB/Wheezing Albuterol/Ipratropium (Duoneb) 3 ml INHALATION Q4HWA.RT [facility] Last Admin: 10/12/19 10:44 Dose: 3 ml Documented by: Enoxaparin Sodium (Lovenox) 40 mg SC DAILY [facility] Last Admin: 10/12/19 09:29 Dose: 40 mg Documented by: Fluticasone Propionate (Flonase Nasal [place]) 1 spray NASAL BID [facility] Last Admin: 10/12/19 09:36 Dose: 1 spray Documented by: Glucagon () 1 mg IM .X1 PRN PRN Reason: Hypoglycemia Guaifenesin (Mucinex) 1,200 mg PO BID [facility] Last Admin: 10/12/19 09:29 Dose: 1,200 mg Documented by: Azithromycin 500 mg/ Dextrose 255 mls @ 250 mls/hr IV Q24H [facility] Stop: 10/17/19 23:02 Cefepime HCl 1 gm/ Sodium (Chloride) 50 mls @ 100 mls/hr IV Q12 [facility] Last Infusion: 10/12/19 09:39 Dose: Infused Documented by: Dextrose (Dextrose 10%-Water) 250 mls @ 999 mls/hr IV .Q16M PRN; Protocol PRN Reason: HYPOGLYCEMIA Sodium Chloride () 250 mls @ 15 mls/hr IV .[id number] PRN PRN Reason: Saline Flush Sodium Chloride () 250 mls @ 15 mls/hr IV .[id number] PRN PRN Reason: Additional IVPB Infusion Loratadine (Claritin) 10 mg PO DAILY [facility] Last Admin: 10/12/19 09:29 Dose: 10 mg Documented by: Melatonin (Melatonin) 3 mg PO QHS PRN PRN PRN Reason: INSOMNIA Methylprednisolone (Solu-Medrol) 40 mg IV Q8 [facility] Last Admin: 10/12/19 05:26 Dose: 40 mg Documented by: Ondansetron HCl (Zofran) 4 mg IV Q8H PRN PRN PRN Reason: NAUSEA/VOMITING Senna/Docusate Sodium (Senokot-S, Alejandra-Colace) 2 tablet PO BID PRN PRN PRN Reason: Constipation Sodium Chloride () 10 - 40 ml IV UD PRN PRN Reason: SALINE FLUSH Last Admin: 10/12/19 00:29 Dose: 10 ml Documented by: Assessment/Plan All Active Problems Sepsis due to pneumonia (Acute) Acute hypoxemic respiratory failure (Acute) RECOMMENDATIONS: 1. Await results of echocardiogram 2. Continue antibiotics until culture negative 3. Reasonable to continue steroids for now 4. Initiate Acapella therapy 5. Wean oxygen as tolerated 6. Walking oximetry prior to discharge IMPRESSIONS: 1. Acute hypoxic respiratory failure Unclear etiology at this time. Patient does have decreased lung function secondary to history of pneumonectomy. Chest x-ray is suggestive of possible dextrocardia and given reported longstanding bronchiectasis, primary ciliary disorder may be an etiology. Deviation to the right may also be secondary to history of pneumonectomy. Patient may also have an element of pulmonary hypertension or congestive heart failure leading to current findings. Improvement in clinical condition likely secondary to correction of hypoxia as antibiotics and steroids would not have a significant effect this quickly. Echocardiogram is currently pending. Did discuss with cardiology about concerns for dextrocardia. Elevated leukocytosis on presentation may be suggestive of stress response more than acute infectious etiology. Reasonable to continue with antibiotics until further information is available. Elevated troponins likely secondary to supply demand mismatch. 2. History of pneumonectomy/poor primary care/Bronchiectasis Complicates care, management, recovery and prognosis. Unclear at this time if this represents an acute change versus progression of underlying illness. Patient would benefit from establishing care with pulmonary and possibly cardiology pending echo results. Patient is highly resistant to any medical intervention, but is willing to initiate bronchiectasis pulmonary toileting with Acapella. Code Visit Inpatient E&M: 52990 Init Hosp L3
--- NOTE | 2019-10-12 12:30 | CASEMGMT ---
RN MELI PATIENT FINANCIAL SERVICES MANAGER CM to room to meet with patient for initial transition planning/care coordination assessment. XIANG GARRISON introduced self and role at [facility]. Pt voices understanding and consents to assessment at this time. Pt sitting up in chair in room in no distress at this time. in room visiting. Pt is A/O at this time and answers all questions appropriately. Care providers, pharmacy, and demographics verified at this time. PCP: No PCP. Given list of local PCP's. Pt/ to look over and want to talk with their daughter, Trina, before deciding on what PCP pt would like to see--pt said she would let staff know when she has decided on PCP so guidance secretary can assist with scheduling follow-up appt after discharge. Specialists: None Preferred [facility] Insurance: Danielle CARY Prescription Benefit: [employer] Living Will/HPOA: [facility] does not have LW or HCPOA . Interested in more information but states does not want to talk with SW at this time to complete paperwork. Provided information on advanced directives and given Social Service rac card with number to call if chooses in the future to utilize [facility] social work for advanced directive completion. Pt/ instructed to ask for SW if she does decide she wants to complete during this admission. LNOK: . Son and daughter Living Arrangements: Lives with her in one-story home w/basement. Has chair lift to basement. Grandson lives with them. Pt is independent with ADL's and IADL's. supportive and available to help if needed. Transportation: Pt/. DME: States has the following DME: shower chair, raised toilet seat, chair lift to basement. Has a cane available but does not use it. Ambulates independently. Pt states no need for further DME at this time. No home O2. May need Home oxygen. Given list of DME companies for pt/ to look over. HHC/SNF: No history of SNF. Hx of HHC after femur fx in 2016 but does not remember the name of the agency. PT/OT evals have been completed. Discussed OP therapy with pt/, but they decline at this time. Made aware if pt decides in the future that she would like OP therapy, to discuss with her PCP (once she has PCP established). Pt wishes to return home and states has no concerns with going home at time of discharge. CM to follow for home oxygen needs and any further discharge planning/needs. Pt voices no further concerns/needs at this time. Advised pt to ask for CM if any further questions/concerns/needs arise. Voices understanding. PLAN: Home. May need Home oxygen testing completed prior to discharge. Pt to let staff know when she has decided on PCP so guidance secretary can assist with scheduling follow-up appt after discharge. Sapphire BRADLEY RN CM
[2019-10-13] VITALS (17 sets, daily range): BP systolic 107–120; BP diastolic 52–62; PULSE 74–130; RESP 16–18; TEMP 36.6–37.1; O2SAT 91–96
[2019-10-13] MEDS: Ipratropium/Albuterol Sulfate 3 ML AMPUL.NEB INHALATION ×4 (07:52→18:45)
--- NOTE | 2019-10-13 08:03 | PN_ITS ---
Patient Problems: Active and Suspected Problems Sepsis due to pneumonia (Acute) CAP (community acquired pneumonia) (Suspected) Acute hypoxemic respiratory failure (Acute) Subjective: Chief complaint: Follow-up after admission for acute hypoxic and hypercapnic respiratory failure, acute exacerbation of bronchiectasis and suspected pneumonia. Patient seen and examined. No acute events overnight. This morning, she feels better, shortness of breath started to improve and she still having some cough but improving as well. Denies any chest pain. Oxygen requirement is down to 2 L, other vitals are stable, afebrile. - Physical Exam Vitals/I&O's: Vital Signs Temp Pulse Resp BP Pulse Ox 97.9 F 74 16 117/61 96 10/13/19 02:00 10/13/19 06:53 10/13/19 02:00 10/13/19 02:00 10/13/19 02:00 Oxygen Flow Rate (L/min) 2 Oxygen Delivery Method Nasal Cannula Weight: 130 lb 11.746 oz Body Mass Index (BMI) 24.7 Intake and Output for Last 24 Hours 10/11/19 10/12/19 10/13/19 23:59 23:59 23:59 Intake Total 550 / 550 1190 / 1190 Output Total Balance 550 / 550 1190 / 1190 -1 General: Alert, Oriented x3, Cooperative, No apparent distress HEENT: Atraumatic, PERRLA, EOMI, Normocephalic Oral: Moist Mucosa, No Gingival or Mucosal Lesions/ Ulcerations Neck: Supple, No JVD, Negative Carotid Bruits, Trachea Midline, Thyroid Normal Size and Texture Lungs: Diminished, Rales, Rhonchi, - - Absent breath sounds on the left side, coarse crackles with rhonchi on the right side. Cardiovascular: Regular rate, Regular Rhythm, Normal S1, Normal S2, PMI Normal Abdomen: Bowel Sounds Present, Soft, Non Tender, Non-Distended, No Hepato- splenomegaly Extremities: No clubbing, No cyanosis, Edema - + Edema. Skin: No rashes, No breakdown Lymphatic: No Cervical, Supraclavicular, or Inguinal Adenopathy Neurological: Cranial nerves II-XII grossly intact, Neuro grossly intact Psych/Mental Status: Normal Affect, Appropriate, Alert and oriented to time, place, person, mood and affect Microbiology Past 72 Hours 10/11/19 20:40 Urine, Random Streptococcus pneumoniae Antigen (M - Final 10/11/19 20:40 Urine, Random Legionella Antigen - Final 10/11/19 21:18 Mucosa - Nasopharyngeal Influenza Types A,B Direct FA (CARYN) - Final Current Medications Al Hydroxide/Mg Hydroxide (Mylanta Ii) 30 ml PO Q6H PRN PRN PRN Reason: Gastric Burning Albuterol Sulfate (Ventolin Aerosols) 2.5 mg INHALATION Q2H PRN PRN PRN Reason: SOB/Wheezing Albuterol/Ipratropium (Duoneb) 3 ml INHALATION Q4HWA.RT [facility] Last Admin: 10/13/19 07:52 Dose: 3 ml Documented by: Enoxaparin Sodium (Lovenox) 40 mg SC DAILY [facility] Last Admin: 10/12/19 09:29 Dose: 40 mg Documented by: Fluticasone Propionate (Flonase Nasal [place]) 1 spray NASAL BID [facility] Last Admin: 10/12/19 20:52 Dose: 1 spray Documented by: Glucagon () 1 mg IM .X1 PRN PRN Reason: Hypoglycemia Guaifenesin (Mucinex) 1,200 mg PO BID [facility] Last Admin: 10/12/19 20:53 Dose: 1,200 mg Documented by: Azithromycin 500 mg/ Dextrose 255 mls @ 250 mls/hr IV Q24H [facility] Stop: 10/17/19 23:02 Last Infusion: 10/12/19 22:59 Dose: Infused Documented by: Cefepime HCl 1 gm/ Sodium (Chloride) 50 mls @ 100 mls/hr IV Q12 [facility] Last Infusion: 10/12/19 21:22 Dose: Infused Documented by: Dextrose (Dextrose 10%-Water) 250 mls @ 999 mls/hr IV .Q16M PRN; Protocol PRN Reason: HYPOGLYCEMIA Sodium Chloride () 250 mls @ 15 mls/hr IV .[id number] PRN PRN Reason: Saline Flush Sodium Chloride () 250 mls @ 15 mls/hr IV .[id number] PRN PRN Reason: Additional IVPB Infusion Loratadine (Claritin) 10 mg PO DAILY [facility] Last Admin: 10/12/19 09:29 Dose: 10 mg Documented by: Melatonin (Melatonin) 3 mg PO QHS PRN PRN PRN Reason: INSOMNIA Methylprednisolone (Solu-Medrol) 40 mg IV Q8 [facility] Last Admin: 10/13/19 05:04 Dose: 40 mg Documented by: Ondansetron HCl (Zofran) 4 mg IV Q8H PRN PRN PRN Reason: NAUSEA/VOMITING Senna/Docusate Sodium (Senokot-S, Alejandra-Colace) 2 tablet PO BID PRN PRN PRN Reason: Constipation Sodium Chloride () 10 - 40 ml IV UD PRN PRN Reason: SALINE FLUSH Last Admin: 10/12/19 13:33 Dose: 10 ml Documented by: Medical Necessity - Tobacco Use Smoking Status: Never smoker Assessment/Plan All Active Problems Sepsis due to pneumonia (Acute) Acute hypoxemic respiratory failure (Acute) This is a 74 years old female patient presented to the emergency room because of shortness of breath and cough and she was found to have acute hypoxic and hypercapnic respiratory failure probably due to acute exacerbation of bronchiectasis as well as suspected pneumonia and also found to have abnormal cardiac enzymes. #1 acute hypoxic and hypercapnic respiratory failure: She is on IV antibiotics and IV steroids as well as bronchodilators. Symptoms started to improve and her oxygen requirement decreasing. It is attributed to acute exacerbation of bronchiectasis and probable pneumonia. Never been on oxygen before. Chest x-ray revealed chronic changes of the right lung, no acute infiltrate or consolidation, left pneumonectomy. EKG revealed normal sinus rhythm with PACs, no acute skin changes. Pneumococcal and Legionella antigen were negative. Nasal swab for influenza a and B were negative. Blood sputum and urine cultures are pending. Plan to continue same treatment, start small dose of Lasix #2 acute exacerbation of bronchiectasis versus suspected community-acquired pneumonia/sepsis: She is on IV Zithromax and cefepime as well as IV Solu-Medrol and bronchodilators. Plan as above. #3 abnormal cardiac enzymes: Patient denied any chest pain. EKG without acute changes. Troponin is trending down. It is probably due to demand ischemia and right heart strain secondary to hypoxia. 2D echocardiogram revealed ejection fraction of 60%, stage I diastolic dysfunction. Plan to start Lasix 20 mg p.o. daily. #4 bronchiectasis: With past history of left whole lung resection, unknown reason but patient mentioned that she had infection and bleeding in her left lung. This was long time ago back in 1980s. Never been on oxygen at home and she mentioned that no admission to the hospital for acute bronchiectasis exacerbation the last several years. Plan as above. #5 DVT prophylaxis: Subcu Lovenox. This note was generated with [employer] software. It may contain incorrect words, spelling, and punctuation that were not noted in checking the note before signing. Code Visit Inpatient E&M: 46148 Subs Hosp L2
[2019-10-13] MEDS: Enoxaparin 40 MG/0.4 ML Syringe SC (09:02)
[2019-10-13] MEDS: guaiFENesin 1,200 MG Tablet 1200 MG PO ×2 (09:02→21:40)
[2019-10-13] MEDS: Fluticasone 0.05% 1 SPRAY NASAL.SRY NASAL ×2 (09:02→21:40)
[2019-10-13] MEDS: Loratadine 10 MG Tablet PO (09:02)
[2019-10-13] MEDS: Furosemide 20 MG/2 ML VIAL IV (09:24)
[2019-10-13] MEDS: Furosemide 20 MG Tablet PO (09:25)
[2019-10-13] MEDS: 0.9% Saline Lock 10 ML Syringe IV ×3 (09:25→21:40)
--- NOTE | 2019-10-13 15:21 | PN_ITS ---
Patient Problems: Active and Suspected Problems Sepsis due to pneumonia (Acute) CAP (community acquired pneumonia) (Suspected) Acute hypoxemic respiratory failure (Acute) Subjective: Patient was significant improvement subjectively compared to yesterday. Patient does believe the supplemental oxygen is making a difference. Patient states her lower extremity edema is somewhat improved following initiation of Lasix therapy - Physical Exam Vitals/I&O's: Vital Signs Temp Pulse Resp BP Pulse Ox 37.1 C 84 16 107/57 L 94 10/13/19 13:42 10/13/19 13:42 10/13/19 13:42 10/13/19 13:42 10/13/19 13:42 Oxygen Flow Rate (L/min) 1 Oxygen Delivery Method Nasal Cannula Weight: 59.3 kg Body Mass Index (BMI) 24.7 Intake and Output for Last 24 Hours 10/11/19 10/12/19 10/13/19 23:59 23:59 23:59 Intake Total 550 / 550 1190 / 1190 410 / 410 Output Total Balance 550 / 550 1190 / 1190 409 / 409 General: Alert, Oriented x3, Cooperative, No apparent distress, - - Appears older than stated age. Speaking in full sentences HEENT: Atraumatic, PERRLA, EOMI, Normocephalic, - - No scleral icterus or injection noted Oral: Moist Mucosa, No Gingival or Mucosal Lesions/ Ulcerations Neck: Supple, No Nodes, Trachea Midline Lungs: No rhonchi, No wheeze, No rales, Diminished - No left-sided breath sounds appreciated Cardiovascular: Regular rate, Regular Rhythm, Normal S1, Normal S2, No murmurs, No rub noted, No Gallop Abdomen: Bowel Sounds Present, Soft, Non Tender, Non-Distended Extremities: No clubbing, No cyanosis, Edema Skin: No rashes, No breakdown Musculoskeletal: No Tenderness to Palpation of Joints or Extremities Lymphatic: No Cervical, Supraclavicular, or Inguinal Adenopathy Neurological: Cranial nerves II-XII grossly intact, Neuro grossly intact, Motor Exam 5/5 strength throughout Psych/Mental Status: Alert and oriented to time, place, person, mood and affect Microbiology Past 72 Hours 10/12/19 17:05 Sputum, Expectorated/Coughed Gram Stain - Final 10/11/19 20:40 Urine, Clean Catch Urine Culture - Preliminary Culture exhibits no growth. 10/11/19 20:40 Urine, Random Streptococcus pneumoniae Antigen (M - Final 10/11/19 20:40 Urine, Random Legionella Antigen - Final 10/11/19 21:18 Mucosa - Nasopharyngeal Influenza Types A,B Direct FA (CARYN) - Final Current Medications Acetaminophen (Tylenol) 650 mg PO Q6H PRN PRN PRN Reason: Pain 1-10/10 or Fever Al Hydroxide/Mg Hydroxide (Mylanta Ii) 30 ml PO Q6H PRN PRN PRN Reason: Gastric Burning Albuterol Sulfate (Ventolin Aerosols) 2.5 mg INHALATION Q2H PRN PRN PRN Reason: SOB/Wheezing Albuterol/Ipratropium (Duoneb) 3 ml INHALATION Q4HWA.RT [facility] Last Admin: 10/13/19 11:03 Dose: 3 ml Documented by: Enoxaparin Sodium (Lovenox) 40 mg SC DAILY [facility] Last Admin: 10/13/19 09:02 Dose: 40 mg Documented by: Fluticasone Propionate (Flonase Nasal [place]) 1 spray NASAL BID [facility] Last Admin: 10/13/19 09:02 Dose: 1 spray Documented by: Furosemide (Lasix) 20 mg PO DAILY [facility] Last Admin: 10/13/19 09:25 Dose: 20 mg Documented by: Glucagon () 1 mg IM .X1 PRN PRN Reason: Hypoglycemia Guaifenesin (Mucinex) 1,200 mg PO BID [facility] Last Admin: 10/13/19 09:02 Dose: 1,200 mg Documented by: Azithromycin 500 mg/ Dextrose 255 mls @ 250 mls/hr IV Q24H [facility] Stop: 10/17/19 23:02 Last Infusion: 10/12/19 22:59 Dose: Infused Documented by: Cefepime HCl 1 gm/ Sodium (Chloride) 50 mls @ 100 mls/hr IV Q12 [facility] Last Infusion: 10/13/19 09:55 Dose: Infused Documented by: Dextrose (Dextrose 10%-Water) 250 mls @ 999 mls/hr IV .Q16M PRN; Protocol PRN Reason: HYPOGLYCEMIA Sodium Chloride () 250 mls @ 15 mls/hr IV .[id number] PRN PRN Reason: Saline Flush Sodium Chloride () 250 mls @ 15 mls/hr IV .[id number] PRN PRN Reason: Additional IVPB Infusion Loratadine (Claritin) 10 mg PO DAILY [facility] Last Admin: 10/13/19 09:02 Dose: 10 mg Documented by: Melatonin (Melatonin) 3 mg PO QHS PRN PRN PRN Reason: INSOMNIA Methylprednisolone (Solu-Medrol) 40 mg IV Q8 [facility] Last Admin: 10/13/19 13:48 Dose: 40 mg Documented by: Ondansetron HCl (Zofran) 4 mg IV Q8H PRN PRN PRN Reason: NAUSEA/VOMITING Senna/Docusate Sodium (Senokot-S, Alejandra-Colace) 2 tablet PO BID PRN PRN PRN Reason: Constipation Sodium Chloride () 10 - 40 ml IV UD PRN PRN Reason: SALINE FLUSH Last Admin: 10/13/19 13:48 Dose: 10 ml Documented by: Medical Necessity - Tobacco Use Smoking Status: Never smoker Assessment/Plan All Active Problems Sepsis due to pneumonia (Acute) Acute hypoxemic respiratory failure (Acute) RECOMMENDATIONS: 1. Walking oximetry 2. Continue antibiotics until culture negative 3. Possibly discontinue steroids tomorrow if doing well 4. Initiate Acapella therapy 5. Wean oxygen as tolerated 6. Okay to discharge if patient able to tolerate 6 L or less with ambulation IMPRESSIONS: 1. Acute hypoxic respiratory failure Work-up is suggestive of pulmonary hypertension leading to congestive heart failure and lower extremity edema. Patient should be diuresed as tolerated. Patient feels significantly improved. High clinical suspicion that supplemental oxygen will be needed on discharge, at least with ambulation. Will obtain a walking oximetry. If patient is able to tolerate 6 L or less with ambulation, possibly able to be discharged with outpatient follow-up. Patient should be started on Acapella therapy to help with pulmonary toileting. Stressed to the patient the importance of outpatient follow-up for quantification clarification of lung function and for avoidance of future hospitalizations. Patient may require right heart catheterization if pulmonary artery pressures are not normalized in 3 to 6 months for classification. Patient would be a poor candidate for vasoactive medications for pulmonary hypertension. 2. History of pneumonectomy/poor primary care/Bronchiectasis Complicates care, management, recovery and prognosis. Unclear at this time if this represents an acute change versus progression of underlying illness. Patient is highly resistant to any medical intervention, but is willing to initiate bronchiectasis pulmonary toileting with Acapella. Code Visit Inpatient E&M: 99316 Subs Hosp L2
[2019-10-14] VITALS (10 sets, daily range): BP systolic 115–119; BP diastolic 60–62; PULSE 71–92; RESP 18; TEMP 36.3–36.8; O2SAT 83–99
[2019-10-14] MEDS: 0.9% Saline Lock 10 ML Syringe IV ×2 (04:59→09:41)
[2019-10-14] MEDS: Ipratropium/Albuterol Sulfate 3 ML AMPUL.NEB INHALATION (06:51)
--- NOTE | 2019-10-14 08:19 | DCINST_ITS ---
- Discharge Diagnoses Current Active Problems: Current Active and Chronic Problems Bronchiectasis (Chronic) Sepsis due to pneumonia (Acute) Acute hypoxemic respiratory failure (Acute) You will use the following diet at home:: Regular Your food should be the consistency of: Regular Discharge Activity: Return to Normal Activity Weight Bearing Status: Weight bearing as tolerated Call your doctor if you observe: Fever of 101 or Higher, Shortness of breath, Dizziness, Fainting spells, Chest pain, Increased palpitations (irregular heartbeat), Uncontrolled pain Instructions: Using Oxygen at Home, Bronchiectasis Allergies/Adverse Reactions: Allergies Penicillins Allergy (Verified 10/11/19 19:37) Hives Sulfa (Sulfonamide Antibiotics) Allergy (Verified 10/11/19 19:37) Hives Medications to take at Discharge Cetirizine HCl [Zyrtec] 5 mg PO DAILY PRN 10/11/19 Furosemide [Lasix] 20 mg PO DAILY #90 tab 10/14/19 Levofloxacin [Levaquin] 750 mg PO DAILY #7 tab 10/14/19 Oxygen, Home [Home Oxygen] 2 - 4 lpm NASAL CONT #1 unit 10/14/19 Prednisone 40 mg PO DAILY #30 tab 10/14/19 The following prescriptions were given: Oxygen, Home [Home Oxygen] 2 - 4 lpm NASAL CONT #1 unit Prescription Printed Furosemide [Lasix] 20 mg PO DAILY #90 tab Transmission Status: Pending to [id number] Levofloxacin [Levaquin] 750 mg PO DAILY #7 tab Transmission Status: Pending to [id number] Prednisone 40 mg PO DAILY #30 tab Transmission Status: Pending to [id number] Primary Care Physician: NOT,DEFINED [NON-STAFF] - Please follow up with your Primary Care Physician in: 1 week. Test Results: Test results from this visit will be discussed in further detail at your follow- up appointment, if applicable. Please Follow Up With: Russel Yip MD When: 2 weeks.
[2019-10-14] MEDS: Furosemide 20 MG Tablet PO (09:28)
[2019-10-14] MEDS: Loratadine 10 MG Tablet PO (09:28)
[2019-10-14] MEDS: guaiFENesin 1,200 MG Tablet 1200 MG PO (09:29)
[2019-10-14] MEDS: Fluticasone 0.05% 1 SPRAY NASAL.SRY NASAL (09:29)
--- NOTE | 2019-10-14 10:10 | CASEMGMT ---
Pt does qualify for home oxygen at this time and was previously provided a list of DME companies. Pt/ state they would like [employer] at this time. [place] [facility] [place] and call to Breanne at [facility] to notify of referral at this time, voices understanding. Pt/ asked this RN CM multiple questions regarding PCP's, f/u, etc at this time and this RN CM answered to the best of ability. Pt/ then decided to try Dr. Barbosa for PCP at this time. Rich, [facility] medical assistant secretary, aware and did make pt appts at this time for [place] and pulmonology. Pt states no further questions/concerns/needs at this time. SStjeremi RN CM
--- NOTE | 2019-10-14 10:56 | PHA.DC.MC ---
Pharmacy Service has performed discharge medication reconciliation and counseling for this patient. 1. FUROSEMIDE 20MG PO DAILY 2. LEVOFLOXACIN 750MG PO DAILY X 7 DAYS 3. PREDNISONE 40MG PO DAILY X 3 DAYS, THEN 30MG X 3 DAYS, THEN 20MG X 3 DAYS, THEN 10MG X 3 DAYS The patient's discharge medication list was reviewed for discrepancies and discrepancies were resolved. Home Medications Cetirizine HCl [Zyrtec] 5 mg PO DAILY PRN 10/11/19 Furosemide [Lasix] 20 mg PO DAILY #90 tab 10/14/19 Levofloxacin [Levaquin] 750 mg PO DAILY #7 tab 10/14/19 Oxygen, Home [Home Oxygen] 2 - 4 lpm NASAL CONT #1 unit 10/14/19 Prednisone 40 mg PO DAILY #30 tab 10/14/19 The patient was counseled on the following discharge medications and changes in medications for homegoing were reviewed. The Reason for Use, instructions for use, and potential side effects were reviewed for all new medications. The patient's questions regarding all of their medications were answered. The patient was able to verbally demonstrate an understanding of their discharge medications.
[2019-10-14 11:40] LABS: Mycoplasma Pneum AB IgG < 100 U/mL (0-99); Mycoplasma pneum. AB IgM < 770 U/mL (0-769)
--- NOTE | 2019-10-14 13:27 | PCM.DC.SUM ---
Discharge Date and Diagnosis Date of Admission: 10/11/19 Date of Discharge: 10/14/19 - Primary Discharge Diagnosis Active and Suspected Problems #1 acute hypoxic and hypercapnic respiratory failure. #2 acute exacerbation of bronchiectasis/suspected community-acquired pneumonia/sepsis. #3 abnormal cardiac enzymes, ACS ruled out. - Secondary Discharge Diagnosis Chronic Problems Bronchiectasis (Chronic) S/P lobectomy of lung (Chronic) HLD (hyperlipidemia) (Chronic) Hospital Course and Treatment Imaging Results: Clinical Impression(s) from Imaging Studies Chest X-Ray 10/11/19 20:10 IMPRESSION: Chronic interstitial changes throughout the right lung without a superimposed acute pulmonary process Changes consistent with previous left pneumonectomy Electronically Signed: Marcos Ott MD at 20:56 EST , Service support , Dr. Yip, pulmonology.. Operations: None Procedures: 2-D Echocardiogram, EKG Summary of Care Provided: Patient seen and examined on the day of discharge and appeared to be stable to be discharged home. Her symptoms improved, less short of breath and she feels better. She remains on oxygen and she did qualify for home oxygen. Her other vital signs were stable. The patient is a 74 year old F patient presented to the emergency room because of shortness of breath and productive cough and she was found to have acute hypoxic and hypercapnic respiratory failure secondary to acute exacerbation of bronchiectasis in addition to probable community-acquired pneumonia. The patient had a history of bronchiectasis, had a history of left pneumonectomy but never been on oxygen before. On admission, had ABG revealed pH of 7.43, PCO2 of 58 and PO2 of 37. Her chest x-ray showed chronic findings of bronchiectasis but there was no obvious infiltrate or consolidation. She did have mild leukocytosis upon admission. She was treated as a case of probable pneumonia in addition to acute exacerbation of bronchiectasis. She was treated with IV Zithromax and cefepime and also received IV steroids. Sputum culture revealed Streptococcus pneumoniae. Pneumococcal and Legionella antigen are negative. Nasal swab for influenza a and B was negative. Urine and blood cultures were clean. Also, she was found to have abnormal cardiac enzymes which is attributed to demand ischemia and right heart strain secondary to hypoxia. Patient denied any chest pain throughout admission. Her EKG revealed no acute acute changes. 2D echocardiogram revealed ejection fraction of 60% with stage I diastolic dysfunction. With above-mentioned treatment, patient symptoms improved. Ambulatory pulse oximetry performed and patient did not qualify for home oxygen because she is ambulatory at home and she can do her daily activities. Patient discharged home in a stable medical condition, discharged on prednisone taper, discharged on Levaquin, started on small dose of Lasix, discharged on home oxygen at 2 to 3 L, plan to follow-up with pulmonology in 2 weeks and recommended follow-up with PCP in 1 week. - Physical Exam Vitals/I&O's: Vital Signs Temp Pulse Resp BP Pulse Ox 97.5 F L 83 18 115/60 99 10/14/19 11:46 10/14/19 11:46 10/14/19 11:46 10/14/19 11:46 10/14/19 11:46 Oxygen Flow Rate (L/min) [ 3 AMBULATION with Oxygen] Oxygen Flow Rate (L/min) [At 0 REST on Room Air] Oxygen Flow Rate (L/min) 3 Oxygen Delivery Method Nasal Cannula Weight: 130 lb 11.746 oz Body Mass Index (BMI) 24.7 Intake and Output for Last 24 Hours 10/12/19 10/13/19 10/14/19 23:59 23:59 23:59 Intake Total 1190 / 1190 1075 / 1075 500 / 500 Output Total Balance 1190 / 1190 1074 / 1074 500 / 500 General: Alert, Oriented x3, Cooperative, No apparent distress HEENT: Atraumatic, PERRLA, EOMI, Normocephalic Oral: Moist Mucosa, No Gingival or Mucosal Lesions/ Ulcerations Neck: Supple, No JVD, Negative Carotid Bruits, Trachea Midline, Thyroid Normal Size and Texture Lungs: No wheeze, Diminished, Rales, Rhonchi, - - Absent breath sounds on the left hemithorax, coarse crackles and rhonchi on the right lung. Cardiovascular: Regular rate, Regular Rhythm, Normal S1, Normal S2, PMI Normal Abdomen: Bowel Sounds Present, Soft, Non Tender, Non-Distended, No Hepato-splenomegaly Extremities: No clubbing, No cyanosis, Edema Skin: No rashes, No breakdown Lymphatic: No Cervical, Supraclavicular, or Inguinal Adenopathy Neurological: Cranial nerves II-XII grossly intact, Neuro grossly intact Psych/Mental Status: Normal Affect, Appropriate, Alert and oriented to time, place, person, mood and affect Microbiology Past 72 Hours 10/11/19 20:04 Blood Culture (Wb) - Anticubital Right Blood Culture - Preliminary No growth in 48 hours. 10/11/19 19:55 Blood Culture (Wb) - Anticubital Left Blood Culture - Preliminary No growth in 48 hours. 10/11/19 20:40 Urine, Clean Catch Urine Culture - Final Culture exhibits no growth. 10/12/19 17:05 Sputum, Expectorated/Coughed Gram Stain - Final 10/11/19 20:40 Urine, Random Streptococcus pneumoniae Antigen (M - Final 10/11/19 20:40 Urine, Random Legionella Antigen - Final 10/11/19 21:18 Mucosa - Nasopharyngeal Influenza Types A,B Direct FA (CARYN) - Final Laboratory Results 10/12/19 02:20: Mycoplasma pneumon IgG < 100, Mycoplasma pneumon IgM < 770 Current Medications Acetaminophen (Tylenol) 650 mg PO Q6H PRN PRN PRN Reason: Pain 1-10/10 or Fever Al Hydroxide/Mg Hydroxide (Mylanta Ii) 30 ml PO Q6H PRN PRN PRN Reason: Gastric Burning Albuterol Sulfate (Ventolin Aerosols) 2.5 mg INHALATION Q2H PRN PRN PRN Reason: SOB/Wheezing Albuterol/Ipratropium (Duoneb) 3 ml INHALATION Q4HWA.RT [facility] Last Admin: 10/14/19 06:51 Dose: 3 ml Documented by: Enoxaparin Sodium (Lovenox) 40 mg SC DAILY [facility] Last Admin: 10/14/19 09:32 Dose: Not Given Documented by: Fluticasone Propionate (Flonase Nasal [place]) 1 spray NASAL BID [facility] Last Admin: 10/14/19 09:29 Dose: 1 spray Documented by: Furosemide (Lasix) 20 mg PO DAILY [facility] Last Admin: 10/14/19 09:28 Dose: 20 mg Documented by: Glucagon () 1 mg IM .X1 PRN PRN Reason: Hypoglycemia Guaifenesin (Mucinex) 1,200 mg PO BID [facility] Last Admin: 10/14/19 09:29 Dose: 1,200 mg Documented by: Azithromycin 500 mg/ Dextrose 255 mls @ 250 mls/hr IV Q24H [facility] Stop: 10/17/19 23:02 Last Infusion: 10/13/19 23:35 Dose: Infused Documented by: Cefepime HCl 1 gm/ Sodium (Chloride) 50 mls @ 100 mls/hr IV Q12 [facility] Last Infusion: 10/14/19 10:30 Dose: Infused Documented by: Dextrose (Dextrose 10%-Water) 250 mls @ 999 mls/hr IV .Q16M PRN; Protocol PRN Reason: HYPOGLYCEMIA Sodium Chloride () 250 mls @ 15 mls/hr IV .[id number] PRN PRN Reason: Saline Flush Sodium Chloride () 250 mls @ 15 mls/hr IV .[id number] PRN PRN Reason: Additional IVPB Infusion Loratadine (Claritin) 10 mg PO DAILY [facility] Last Admin: 10/14/19 09:28 Dose: 10 mg Documented by: Melatonin (Melatonin) 3 mg PO QHS PRN PRN PRN Reason: INSOMNIA Methylprednisolone (Solu-Medrol) 40 mg IV Q8 [facility] Last Admin: 10/14/19 04:59 Dose: 40 mg Documented by: Ondansetron HCl (Zofran) 4 mg IV Q8H PRN PRN PRN Reason: NAUSEA/VOMITING Senna/Docusate Sodium (Senokot-S, Alejandra-Colace) 2 tablet PO BID PRN PRN PRN Reason: Constipation Sodium Chloride () 10 - 40 ml IV UD PRN PRN Reason: SALINE FLUSH Last Admin: 10/14/19 09:41 Dose: 10 ml Documented by: Discharge Activity: Return to Normal Activity Weight Bearing Status: Weight bearing as tolerated Call your doctor if you observe: Fever of 101 or Higher, Shortness of breath, Dizziness, Fainting spells, Chest pain, Increased palpitations (irregular heartbeat), Uncontrolled pain Home Medications: Medications to take at Discharge Cetirizine HCl [Zyrtec] 5 mg PO DAILY PRN 10/11/19 Furosemide [Lasix] 20 mg PO DAILY #90 tab 10/14/19 Levofloxacin [Levaquin] 750 mg PO DAILY #7 tab 10/14/19 Oxygen, Home [Home Oxygen] 2 - 4 lpm NASAL CONT #1 unit 10/14/19 Prednisone 40 mg PO DAILY #30 tab 10/14/19 Following Prescrptions Were Given to Patient: Oxygen, Home [Home Oxygen] 2 - 4 lpm NASAL CONT #1 unit Prescription Printed Furosemide [Lasix] 20 mg PO DAILY #90 tab Transmission Status: Received by [id number] Levofloxacin [Levaquin] 750 mg PO DAILY #7 tab Transmission Status: Received by [id number] Prednisone 40 mg PO DAILY #30 tab Transmission Status: Received by [id number] Primary Care Physician: NOT,DEFINED [NON-STAFF] - Please follow up with your Primary Care Physician in: 1 week. Please Follow Up With: Marcela Poole NP-C When: 2 weeks. Please Follow Up With: Marco A Barbosa MD Patient Instructions: Bronchiectasis, Using Oxygen at Home Disposition: Home Minutes spent on discharge:: 32 Patient Condition:: Stable Medical Necessity - Tobacco Use Smoking Status: Never smoker Meaningful Use Info Meaningful Use Diagnoses (Choose all that apply): None applicable Code Visit Inpatient E&M: 37647 Disch Hosp
--- NOTE | 2019-10-14 14:27 | PN_ITS ---
Patient Problems: Active and Suspected Problems Sepsis due to pneumonia (Acute) CAP (community acquired pneumonia) (Suspected) Acute hypoxemic respiratory failure (Acute) Subjective: Patient did well overnight. Patient states that she feels close to baseline at this time. Patient has been in the chair most of the afternoon. Swelling in the legs is subjectively improving. Patient denies any productive cough or fevers. - Physical Exam Vitals/I&O's: Vital Signs Temp Pulse Resp BP Pulse Ox 36.4 C L 83 18 115/60 99 10/14/19 11:46 10/14/19 11:46 10/14/19 11:46 10/14/19 11:46 10/14/19 11:46 Oxygen Flow Rate (L/min) [ 3 AMBULATION with Oxygen] Oxygen Flow Rate (L/min) [At 0 REST on Room Air] Oxygen Flow Rate (L/min) 3 Oxygen Delivery Method Nasal Cannula Weight: 59.3 kg Body Mass Index (BMI) 24.7 Intake and Output for Last 24 Hours 10/12/19 10/13/19 10/14/19 23:59 23:59 23:59 Intake Total 1190 / 1190 1075 / 1075 500 / 500 Output Total Balance 1190 / 1190 1074 / 1074 500 / 500 General: Alert, Oriented x3, Cooperative, No apparent distress, - - Appears older than stated age. Speaking in full sentences. HEENT: Atraumatic, PERRLA, EOMI, Normocephalic, - - No scleral icterus or injection noted Oral: Moist Mucosa, No Gingival or Mucosal Lesions/ Ulcerations Neck: Supple, No Nodes, Trachea Midline, JVD, Right Lungs: - - No change compared to previous. Cardiovascular: Regular rate, Regular Rhythm, Normal S1, Normal S2, No murmurs, No rub noted, No Gallop Abdomen: Bowel Sounds Present, Soft, Non Tender, Non-Distended Extremities: No clubbing, No cyanosis, Edema - 1-2+ lower extremities Skin: - - No change compared to previous Musculoskeletal: No Tenderness to Palpation of Joints or Extremities Lymphatic: No Cervical, Supraclavicular, or Inguinal Adenopathy Neurological: Cranial nerves II-XII grossly intact, Neuro grossly intact, Motor Exam 5/5 strength throughout Psych/Mental Status: Alert and oriented to time, place, person, mood and affect Microbiology Past 72 Hours 10/11/19 20:04 Blood Culture (Wb) - Anticubital Right Blood Culture - Preliminary No growth in 48 hours. 10/11/19 19:55 Blood Culture (Wb) - Anticubital Left Blood Culture - Preliminary No growth in 48 hours. 10/11/19 20:40 Urine, Clean Catch Urine Culture - Final Culture exhibits no growth. 10/12/19 17:05 Sputum, Expectorated/Coughed Gram Stain - Final 10/11/19 20:40 Urine, Random Streptococcus pneumoniae Antigen (M - Final 10/11/19 20:40 Urine, Random Legionella Antigen - Final 10/11/19 21:18 Mucosa - Nasopharyngeal Influenza Types A,B Direct FA (CARYN) - Final Laboratory Results 10/12/19 02:20: Mycoplasma pneumon IgG < 100, Mycoplasma pneumon IgM < 770 Current Medications Acetaminophen (Tylenol) 650 mg PO Q6H PRN PRN PRN Reason: Pain 1-10/10 or Fever Al Hydroxide/Mg Hydroxide (Mylanta Ii) 30 ml PO Q6H PRN PRN PRN Reason: Gastric Burning Albuterol Sulfate (Ventolin Aerosols) 2.5 mg INHALATION Q2H PRN PRN PRN Reason: SOB/Wheezing Albuterol/Ipratropium (Duoneb) 3 ml INHALATION Q4HWA.RT [facility] Last Admin: 10/14/19 06:51 Dose: 3 ml Documented by: Enoxaparin Sodium (Lovenox) 40 mg SC DAILY [facility] Last Admin: 10/14/19 09:32 Dose: Not Given Documented by: Fluticasone Propionate (Flonase Nasal [place]) 1 spray NASAL BID [facility] Last Admin: 10/14/19 09:29 Dose: 1 spray Documented by: Furosemide (Lasix) 20 mg PO DAILY [facility] Last Admin: 10/14/19 09:28 Dose: 20 mg Documented by: Glucagon () 1 mg IM .X1 PRN PRN Reason: Hypoglycemia Guaifenesin (Mucinex) 1,200 mg PO BID [facility] Last Admin: 10/14/19 09:29 Dose: 1,200 mg Documented by: Azithromycin 500 mg/ Dextrose 255 mls @ 250 mls/hr IV Q24H [facility] Stop: 10/17/19 23:02 Last Infusion: 10/13/19 23:35 Dose: Infused Documented by: Cefepime HCl 1 gm/ Sodium (Chloride) 50 mls @ 100 mls/hr IV Q12 [facility] Last Infusion: 10/14/19 10:30 Dose: Infused Documented by: Dextrose (Dextrose 10%-Water) 250 mls @ 999 mls/hr IV .Q16M PRN; Protocol PRN Reason: HYPOGLYCEMIA Sodium Chloride () 250 mls @ 15 mls/hr IV .[id number] PRN PRN Reason: Saline Flush Sodium Chloride () 250 mls @ 15 mls/hr IV .[id number] PRN PRN Reason: Additional IVPB Infusion Loratadine (Claritin) 10 mg PO DAILY [facility] Last Admin: 10/14/19 09:28 Dose: 10 mg Documented by: Melatonin (Melatonin) 3 mg PO QHS PRN PRN PRN Reason: INSOMNIA Methylprednisolone (Solu-Medrol) 40 mg IV Q8 [facility] Last Admin: 10/14/19 04:59 Dose: 40 mg Documented by: Ondansetron HCl (Zofran) 4 mg IV Q8H PRN PRN PRN Reason: NAUSEA/VOMITING Senna/Docusate Sodium (Senokot-S, Alejandra-Colace) 2 tablet PO BID PRN PRN PRN Reason: Constipation Sodium Chloride () 10 - 40 ml IV UD PRN PRN Reason: SALINE FLUSH Last Admin: 10/14/19 09:41 Dose: 10 ml Documented by: Medical Necessity - Tobacco Use Smoking Status: Never smoker Assessment/Plan All Active Problems Sepsis due to pneumonia (Acute) Acute hypoxemic respiratory failure (Acute) RECOMMENDATIONS: 1. Okay to discharge on supplemental oxygen with outpatient follow-up 2. Likely okay to discontinue antibiotics after 5 days 3. Okay to discharge on a prednisone taper 4. Initiate Acapella therapy 5. Wean oxygen as tolerated 6. Okay to discharge if patient able to tolerate 6 L or less with ambulation IMPRESSIONS: 1. Acute hypoxic respiratory failure Work-up is suggestive of pulmonary hypertension leading to congestive heart failure and lower extremity edema. Patient continued to be diuresed as tolerated. Patient feels significantly improved. High clinical suspicion that supplemental oxygen will be needed on discharge, at least with ambulation. Will obtain a walking oximetry. Patient was able to ambulate with 3 L nasal cannula. Patient should be started on Acapella therapy to help with pulmonary toileting. Stressed to the patient the importance of outpatient follow-up for quantification clarification of lung function and for avoidance of future hospitalizations. Patient may require right heart catheterization if pulmonary artery pressures are not normalized in 3 to 6 months for classification. Patient would be a poor candidate for vasoactive medications for pulmonary hypertension. Patient will likely need a repeat echocardiogram in 3 to 6 months as an outpatient. 2. History of pneumonectomy/poor primary care/Bronchiectasis Complicates care, management, recovery and prognosis. Unclear at this time if this represents an acute change versus progression of underlying ill ness. Patient is highly resistant to any medical intervention, but is willing to initiate bronchiectasis pulmonary toileting with Acapella. Code Visit Inpatient E&M: 45982 Subs Hosp L2
== END 2019-10-14 12:19 | disposition home or self-care (01) | DRG 871 ==
LOC: ED 20:35 → PCU 21:36
PROVIDERS: Admitting Provider Hospitalist; Emergency Provider Emergency Medicine; Referring Provider Hospitalist; Visit Provider Hospitalist
DX: A41.9 Sepsis, unspecified organism (principal); J96.01 Acute respiratory failure with hypoxia; J96.02 Acute respiratory failure with hypercapnia; J18.9 Pneumonia, unspecified organism; J47.0 Bronchiectasis with acute lower respiratory infection; J47.1 Bronchiectasis with (acute) exacerbation; I24.8 Other forms of acute ischemic heart disease; Z90.2 Acquired absence of lung [part of]; E78.5 Hyperlipidemia, unspecified
CPT/HCPCS: 36415; 36600; 71045; 80048; 80053; 81001; 82803; 83605; 83880; 84484; 85025; 85610; 85730; 86738; 87040; 87070; 87077; 87086; 87106; 87186; 87205; 87449; 87804; 93005; 93306; 94640; 94667; 94668; 97162; 97166; 97530; 99251; 99285; J7030; J7040; A4216; G0463; J1940

== ENCOUNTER → 2019-10-28 11:08 | Outpatient (CLI) | payer MEDICARE, BC, SELFPAY ==
[2019-10-28 10:07] VITALS: BMI 24.7
[2019-10-28 13:00] LABS: Anion Gap 2 (5-15); BUN 25 mg/dL (7-18); BUN/Creat Ratio 73.7 RATIO (10-20); Chloride 105 mmol/L (98-107); Creatinine, Serum 0.34 mg/dL (0.55-1.02); EST Glomerular Filtration Rate 200 mL/min (>60); Est Glom Filt Rate - Afr Amer 242 mL/min (>60); Glucose 61 mg/dL (74-106); Potassium 4.5 mmol/L (3.5-5.1); Sodium Level 141 mmol/L (136-145)
== END ==
PROVIDERS: PCP Internal Medicine; Referring Provider Internal Medicine; Visit Provider Internal Medicine
DX: A41.9 Sepsis, unspecified organism (principal); J18.9 Pneumonia, unspecified organism
CPT/HCPCS: 36415; 80048

== ENCOUNTER → 2019-11-10 10:43 | Outpatient (CLI) | payer MEDICARE, BC, SELFPAY ==
[2019-10-28 10:07] VITALS: BMI 24.7
[2019-11-10 11:57] VITALS: PULSE 101; PULSE 102; PULSE 103; PULSE 105; PULSE 74; PULSE 81; PULSE 93; PULSE 97; O2SAT 93; O2SAT 94; O2SAT 95
--- NOTE | 2019-11-10 14:43 | PCM.PSN.6M ---
PSN 6 Minute Walk Test - 6 Minute Walk Test 6 Minute Walk Test: 6 Minute Walk Test PSN:6-Minute Walk Test Start: 11/10/19 11:57 Freq: Status: Active Protocol: RESP.6MINW Document 11/10/19 11:57 SMB (Rec: 11/10/19 11:59 SMB [id number]) 6 Minute Walk Test Date Performed 11/10/19 Time Performed 11:10 Height 5 ft 1 in Weight: 55.792 kg Weight in Pounds 123.[address]: Marcela Poole Assistive device used: None Pre-test Oxygen Delivery Method Room Air Pulse Ox (%) 94 Pulse Rate (60-100 beats/min) 74 Dyspnea Rosalind Scale (0-10) 0 Exertion Rosalind Scale (6-20) 11 1st minute Oxygen Delivery Method Room Air Pulse Ox (%) 95 Pulse Rate (60-100 beats/min) 93 2nd minute Oxygen Delivery Method Room Air Pulse Ox (%) 93 Pulse Rate (60-100 beats/min) 97 3rd minute Oxygen Delivery Method Room Air Pulse Ox (%) 93 Pulse Rate (60-100 beats/min) 102 H 4th minute Oxygen Delivery Method Room Air Pulse Ox (%) 93 Pulse Rate (60-100 beats/min) 101 H 5th minute Oxygen Delivery Method Room Air Pulse Ox (%) 93 Pulse Rate (60-100 beats/min) 105 H 6th minute Oxygen Delivery Method Room Air Pulse Ox (%) 93 Pulse Rate (60-100 beats/min) 103 H Post-test Oxygen Delivery Method Room Air Pulse Ox (%) 95 Pulse Rate (60-100 beats/min) 81 Dyspnea Rosalind Scale (0-10) 1 Exertion Rosalind Scale (6-20) 12 Full Laps Walked 10 Partial Lap, Number of Tiles Walked 21 Total Distance Walked (ft) 611 - Interpretation Interpretation: Patient was able to ambulate 611 feet over the course of 6 minutes on room air with no assistive devices or breaks. The patient did not experience significant desaturation, but did have a peak heart rate of 105 bpm. These findings are consistent with deconditioning. - Recommendations Recommendations: No supplemental oxygen indicated at this time.
== END ==
PROVIDERS: PCP Internal Medicine; Referring Provider Nurse Practitioner Acute Care; Visit Provider Nurse Practitioner Acute Care
DX: J96.01 Acute respiratory failure with hypoxia (principal)
CPT/HCPCS: 94618

== ENCOUNTER → 2019-11-12 10:15 | Outpatient (CLI) | payer MEDICARE, BC, SELFPAY ==
[2019-10-28 10:07] VITALS: BMI 24.7
--- NOTE | 2019-11-12 15:22 | SPIR ---
Spirometry PFT Testing Spirometry PFT Testing: COMPLETE PULMONARY FUNCTION TEST INTERPRETATION Brief HPI: Patient is a 74 year old female, currently under the care of myself, who presents to [facility] for complete pulmonary function tests secondary to diagnosis of bronchitis. Respiratory therapist reports good effort, but had significant difficulty in completing testing. Interpretation: Forced expiration spirometry shows a possible large airways obstructive ventilatory defect with an FEV1 of 32% predicted. There is no significant bronchodilator response by strict ATS criteria. Spirograms are of good quality and plateau slowly, indicating slowly emptying areas of the lungs. The respiratory flow volume loop shows decreased expiratory flow rates at high lung volumes consistent with small airways obstruction. No previous pulmonary function tests were available for review. Impression: Findings suggestive of possible mixed ventilatory defect. Problematic interpretation given difficulty with testing.
== END ==
PROVIDERS: PCP Internal Medicine; Referring Provider Nurse Practitioner Acute Care; Visit Provider Nurse Practitioner Acute Care
DX: J47.9 Bronchiectasis, uncomplicated (principal)
CPT/HCPCS: 94060

== ENCOUNTER → 2019-11-26 13:55 | Outpatient (CLI) | payer MEDICARE, BC, SELFPAY ==
[2019-11-26 07:44] VITALS: BMI 24.7
[2019-11-26 15:04] LABS: Anion Gap 4 (5-15); BUN 19 mg/dL (7-18); BUN/Creat Ratio 48.6 RATIO (10-20); Calcium,Total 9.3 mg/dL (8.5-10.1); Chloride 104 mmol/L (98-107); Creatinine, Serum 0.39 mg/dL (0.55-1.02); EST Glomerular Filtration Rate 170 mL/min (>60); Est Glom Filt Rate - Afr Amer 205 mL/min (>60); Glucose 81 mg/dL (74-106); Potassium 3.8 mmol/L (3.5-5.1); Sodium Level 141 mmol/L (136-145)
== END ==
PROVIDERS: PCP Internal Medicine; Referring Provider Internal Medicine; Visit Provider Internal Medicine
DX: I27.20 Pulmonary hypertension, unspecified (principal)
CPT/HCPCS: 36415; 80048

== ENCOUNTER → 2019-12-01 15:38 | Outpatient (CLI) | payer MEDICARE, BC, SELFPAY ==
[2019-11-23 16:12] VITALS: BMI 24.7
[2019-11-26 07:44] VITALS: BMI 24.7
--- NOTE | 2019-12-01 15:49 | BD_ITS ---
STUDY: DUAL ENERGY X-RAY ABSORPTIOMETRY / DXA REASON FOR EXAM: Female, 74 years old. Unsure of age of giselle- had partial hysterectomy. Pat is 121# and 60 and quot; a loss of 2 and quot; per pat. Past hx of taking Prolia. Past hx of using a diuretic. Recently was on prednisone. Currently uses an inhaler. Does not exercises. Hx of a right foot fx and a right hip fx with surgery. TECHNIQUE: Bone Mineral Density (BMD) measurements of lumbar spine and left hip were obtained. COMPARISON: Comparison is made with prior study dated February 14, 2016. FINDINGS: Lumbar Spine (L1-L4): g/cm2 (0.798) / T-score (-3.2) / Z-score (-1.4) Findings are suggestive of osteoporosis with a high fracture risk. Left Femur Total: g/cm2 (0.542) / T-score (-3.7) / Z-score (-2.0) Left Femoral Neck: g/cm2 (0.513) / T-score (-3.8) / Z-score (-1.9) The T-Scores on the most recent prior examination were: Lumbar Spine (L1-L4): There has been worsening of bone density since the previous examination. Left Femur Total: which represents a worsening of . BD/Dexa Bone Density Study IMPRESSION: The patient is considered osteoporotic as outlined below according to World Chint[employer] Organization (WHO) criteria with a high fracture risk. There has been worsening of bone density since the previous examination. Reference Information: The T-score is the number of standard deviations above or below the standard which is normal for young adults at their peak bone mineral density. The World Health Organization (WHO) interprets the T-scores as follows: Above -1 Normal bone density Between -1 and -2.5 Osteopenia Equal to / or below -2.5 Osteoporosis As a practical clinical guideline, osteopenia may be graded as follows: Mild -1 through -1.5 Moderate -1.6 through -2.0 Severe -2.1 through -2.4 The Z-score is the number of standard deviations above or below age-matched controls. A Z-score of less than -1.5 would be considered abnormal. References: 1. NIH Osteoporosis and Related Bone Diseases http://www.osteo.org 2. International Society for Clinical Densitometry http://www.iscd.org 3. National Osteoporosis Foundation http://www.nof.org Electronically Signed: Milton Hayes, at 13:59 EST , Service support ,
== END ==
PROVIDERS: PCP Internal Medicine; Referring Provider Internal Medicine; Visit Provider Internal Medicine
DX: Z78.0 Asymptomatic menopausal state (principal)
CPT/HCPCS: 77080

== ENCOUNTER → 2019-12-28 13:42 | Outpatient (CLI) | payer MEDICARE, BC, SELFPAY ==
[2019-11-26 07:44] VITALS: BMI 24.7
[2019-12-21 16:24] VITALS: BMI 24.7
--- NOTE | 2019-12-28 13:43 | ECHOCS_ITS ---
Reason For Study: DYSPNEA/SOB Procedure This was a 2D Doppler, Color Flow transthoracic echocardiogram. The study was technically difficult. Due to position of the heart due to LT lung removal. Exam performed in department. Left Ventricle Normal LV size. Left ventricular systolic function is normal. The estimated ejection fraction is 60 %. No regional wall motion abnormalities noted. Right Ventricle Normal RV size. Normal systolic function. Atria Normal left atrium. Normal right atrium. Tricuspid Valve Normal tricuspid valve. Mild to moderate (1-2+) tricuspid valve insufficiency. Pulmonary artery systolic pressure is 44 mmHg. Great Vessels Normal aortic root. Pericardium/Pleural No pericardial effusion. MMode/2D Measurements & Calculations LVIDd: 4.1 cm IVSd: 0.87 cm Ao root diam: 3.0 cm LVIDs: 2.5 cm LVPWd: 0.92 cm RVDd: 3.2 cm FS: 39.1 % LAV(MOD-bp): 23.0 ml LA A4 area: 10.1 cm2 RA A4 area: 10.1 cm2 LAV(MOD-bp) Indexed: 14.8 ml/m2 LAV(MOD-sp2): 19.9 ml LAV(MOD-sp4): 23.7 ml Time Measurements MV dec time: 0.17 sec Doppler Measurements & Calculations MV E max ilan: 84.8 cm/sec Lat Peak E' Ilan: 8.0 cm/sec Med Peak E' Ilan: 4.9 cm/sec MV A max ilan: 103.9 cm/sec E/E' lat: 10.6 E/E' med: 17.3 MV E/A: 0.82 Ao V2 max: 140.6 cm/sec LV V1 max: 95.4 cm/sec PA V2 max: 79.9 cm/sec Ao max P.9 mmHg LV V1 max P.6 mmHg TR max ilan: 317.3 cm/sec TR max P.3 mmHg Interpretation Summary Normal LV size. Left ventricular systolic function is normal. The estimated ejection fraction is 60 %. Pulmonary artery systolic pressure is 44 mmHg. The study was technically limited. The study was technically difficult. Ordering Physician: Marcela Poole Referring Physician: Marco A Barbosa Performed By: Eli Dunn, RDCS, RVT
== END ==
PROVIDERS: PCP Internal Medicine; Referring Provider Nurse Practitioner Acute Care; Visit Provider Nurse Practitioner Acute Care
DX: I27.20 Pulmonary hypertension, unspecified (principal)
CPT/HCPCS: 93306; C8929

== ENCOUNTER → 2020-08-16 15:44 | Outpatient (CLI) | payer MEDICARE, BC, SELFPAY ==
[2020-08-16 15:04] VITALS: BMI 22.6
[2020-08-16 18:02] LABS: Absolute Lymphocyte Count 1.58 X10^3/uL (0.83-4.51); Absolute Neutrophil Count 4.9 X10^3/uL (2.0-7.7); Basophil# 0.01 X10^3/uL; Basophil% 0.1 % (0-1); Eosinophil# 0.09 X10^3/uL; Eosinophils% 1.2 % (0-5); Hematocrit 44.8 % (37-47); Hemoglobin 13.8 g/dL (12.0-15.0); Lymphocyte # 1.58 X10^3/ul (4.0); Mean Corp Hgb Conc 30.8 g/dL (32-36); Mean Corpuscular Hgb 30.3 pg (27.0-32.0); Mean Corpuscular Volume 98.5 fL (81-99); Mean Platelet Vol. 11.5 fl (6.2-12.0); Monocyte# 0.95 X10^3/uL; Monocyte% 12.6 % (0-10); NRBC Flagged by Analyzer 0 % (0-5); Platelet Count 216 K/mm3 (150-450); RBC Distribution Width CV 15.6 % (11.6-14.6); RBC Distribution Width SD 56.8 fl (35.1-43.9); Red Blood Count 4.55 M/mm3 (4.2-5.4); White Blood Count 7.5 K/mm3 (4.4-11.0)
[2020-08-16 18:24] LABS: Erythrocyte Sedimentation Rate 9 mm/hr (0-30)
[2020-08-16 18:38] LABS: ALB/GLOB Ratio 1.1 RATIO (0.9-2.4); AST(SGOT) 13 U/L (15-37); Alanine Aminotransfer ALT/SGPT 22 U/L (13-56); Alkaline Phosphatase 60 U/L (45-117); Anion Gap 6 (5-15); BUN 20 mg/dL (7-18); Calcium,Total 9.2 mg/dL (8.5-10.1); Chloride 103 mmol/L (98-107); Creatinine, Serum 0.44 mg/dL (0.55-1.02); EST Glomerular Filtration Rate 150 mL/min (>60); Est Glom Filt Rate - Afr Amer 181 mL/min (>60); Globulin 3.5 g/dL (2.2-4.2); Glucose 78 mg/dL (74-106); Protein, Total 7.5 g/dL (6.4-8.2); Sodium Level 141 mmol/L (136-145); T4 Free Direct 1.38 ng/dL (0.76-1.46); Thyroid Stim Hormone (TSH) 0.89 uIU/mL (0.358-3.74)
== END ==
PROVIDERS: PCP Internal Medicine; Referring Provider Internal Medicine; Visit Provider Internal Medicine
DX: J32.9 Chronic sinusitis, unspecified (principal); M81.0 Age-related osteoporosis without current pathological fracture; I27.20 Pulmonary hypertension, unspecified; R63.4 Abnormal weight loss; Z13.29 Encounter for screening for other suspected endocrine disorder
CPT/HCPCS: 36415; 80053; 84439; 84443; 85025; 85652

== ENCOUNTER → 2021-08-21 14:44 | Outpatient (CLI) | payer MEDICARE, BC, SELFPAY ==
--- NOTE | 2021-08-21 15:27 | EKG12_ITS ---
Test Reason : Blood Pressure : / mmHG Vent. Rate : 067 BPM Atrial Rate : 067 BPM P-R Int : 138 ms QRS Dur : 082 ms QT Int : 396 ms P-R-T Axes : 034 069 090 degrees QTc Int : 418 ms Sinus rhythm with marked sinus arrhythmia Otherwise normal ECG Confirmed by SARAHI MORENO, GREGORIO ([id number]), editorial writer TANO MARIE ([id number]) on 08/22/2021 10:59:47 AM Referred By: Marco A Barbosa Confirmed By:GREGORIO MCCLAIN MD
[2021-08-21 16:44] LABS: Absolute Lymphocyte Count 1.18 X10^3/uL (0.83-4.51); Absolute Neutrophil Count 4.5 X10^3/uL (2.0-7.7); Basophil# 0.01 X10^3/uL; Basophil% 0.1 % (0-1); Eosinophil# 0.08 X10^3/uL; Eosinophils% 1.2 % (0-5); Hematocrit 43.1 % (37-47); Hemoglobin 13.7 g/dL (12.0-15.0); Lymphocyte # 1.18 X10^3/ul (0.83-4.51); Lymphocyte % 17.5 % (19-41); Mean Corp Hgb Conc 31.8 g/dL (32-36); Mean Corpuscular Hgb 31.2 pg (27.0-32.0); Mean Corpuscular Volume 98.2 fL (81-99); Mean Platelet Vol. 11.3 fl (6.2-12.0); Monocyte# 0.94 X10^3/uL; Monocyte% 13.9 % (0-10); NRBC Flagged by Analyzer 0 % (0-5); Neutrophil # 4.51 X10^3/uL (2.7-7.7); Platelet Count 189 K/mm3 (150-450); RBC Distribution Width CV 16.5 % (11.6-14.6); RBC Distribution Width SD 60.1 fl (35.1-43.9); Red Blood Count 4.39 M/mm3 (4.2-5.4); White Blood Count 6.7 K/mm3 (4.4-11.0)
[2021-08-21 16:55] LABS: Vitamin D,25 Hydroxy 24.7 ng/mL
[2021-08-21 17:01] LABS: ALB/GLOB Ratio 1.1 RATIO (0.9-2.4); AST(SGOT) 15 U/L (15-37); Alanine Aminotransfer ALT/SGPT 34 U/L (13-56); Albumin, Serum 3.6 g/dL (3.2-5.0); Alkaline Phosphatase 56 U/L (45-117); Anion Gap 3 (5-15); BUN 25 mg/dL (7-18); BUN/Creat Ratio 65.6 RATIO (10-20); Calcium,Total 8.9 mg/dL (8.5-10.1); Chloride 105 mmol/L (98-107); Cholesterol 205 mg/dL (200); Creatinine, Serum 0.38 mg/dL (0.55-1.02); EST Glomerular Filtration Rate 174 mL/min (>60); Est Glom Filt Rate - Afr Amer 211 mL/min (>60); Globulin 3.2 g/dL (2.2-4.2); Glucose 96 mg/dL (74-106); High Density Lipoprotein 86 mg/dL; Potassium 4.2 mmol/L (3.5-5.1); Protein, Total 6.8 g/dL (6.4-8.2); Sodium Level 142 mmol/L (136-145); T4 Free Direct 1.11 ng/dL (0.76-1.46); Thyroid Stim Hormone (TSH) 1.52 uIU/mL (0.358-3.74); Triglycerides 50 mg/dL; Very Low Density Lipoprotein 10 mg/dL (5-40)
== END ==
LOC: BIMLAB 15:14 → RAD 15:49
PROVIDERS: PCP Internal Medicine; Referring Provider Internal Medicine; Visit Provider Internal Medicine
DX: I49.9 Cardiac arrhythmia, unspecified (principal); I27.20 Pulmonary hypertension, unspecified; E78.5 Hyperlipidemia, unspecified; M81.0 Age-related osteoporosis without current pathological fracture
CPT/HCPCS: 36415; 80053; 80061; 82306; 84439; 84443; 85025; 93005

== ENCOUNTER 2021-09-18 06:38 | Emergency (ER) | payer MEDICARE, BC, SELFPAY ==
[2021-09-18] VITALS (24 sets, daily range): BP systolic 110–158; BP diastolic 52–99; PULSE 78–100; RESP 18–25; TEMP 36.6–37.2; O2SAT 90–99; BMI 22.6
--- NOTE | 2021-09-18 08:02 | EKG12_ITS ---
Test Reason : GENERAL ILLNESS Blood Pressure : / mmHG Vent. Rate : 091 BPM Atrial Rate : 091 BPM P-R Int : 130 ms QRS Dur : 088 ms QT Int : 372 ms P-R-T Axes : 049 072 116 degrees QTc Int : 457 ms Sinus rhythm with Premature atrial complexes Nonspecific ST and T wave abnormality Abnormal ECG Confirmed by YANETH MORENO, CHARU ([id number]), multimedia editor TANO MARIE ([id number]) on 09/20/2021 11:26:01 AM Referred By: SERENITY Confirmed By:CHARU WOLFE MD
--- NOTE | 2021-09-18 08:08 | EDS_ITS ---
HPI History of Present Illness Chief Complaint: Fall Informant: patient and family Onset/Context/Timing Onset: Days Context: Gradual Onset Timing: Continuous Quality: Weakness Location: Generalized Worsened by: Nothing Relieved by: Nothing Narrative Narrative: Patient presents with shortness of breath that has been getting worse over the past few days. Patient's was recently tested for Covid but they do not have the results back. Family is concerned that patient has Covid. Patient has not been vaccinated against COVID-19. Patient has not been taking her Lasix because she has been feeling too weak to get to the bathroom. Daughter went to check on the patient today and found her laying on the floor. Patient states she was weak and slid to the floor. Patient denies any injuries. Patient denies any loss of consciousness. Patient denies any head injury. Patient admits to a cough but denies any sputum production. [facility] Medical History Arrhythmia Chronic bronchitis Fatigue Flu vaccine need Frequent headaches History of fracture of ankle History of hip fracture History of pneumonia Hypoglycemia Osteoporosis Positive colorectal cancer screening using Cologuard test Positive colorectal cancer screening using Cologuard test Seasonal allergies Home Medications Oxygen, Home [Home Oxygen] 2 - 4 lpm NASAL CONT #1 unit 10/14/19 [Rx Last Taken Unknown] spacer #1 ea 11/26/19 [Rx Last Taken Unknown] buspirone 5 mg tablet See Rx Instructions .ROUTE .COMPLEX #60 tab 12/15/19 [Rx Last Taken Unknown] calcium carb,cit ER 600 mg-vit D3 12.5 mcg (500 unit) tablet,ext.rel tab PO DAILY tab 01/25/20 [History Last Taken Unknown] multivitamin 1 cap PO DAILY 01/25/20 [History Last Taken Unknown] albuterol sulfate 90 mcg/actuation aerosol inhaler 2 puff INHALATION Q4H PRN #18 gm 12/29/20 [Rx Last Taken Unknown] azelastine 205.5 mcg (0.15 %) nasal spray 1 spray INTRANASAL BID #30 ml 12/29/20 [Rx Last Taken Unknown] fluticasone propionate 50 mcg/actuation nasal spray,suspension 2 spray INTRANASAL BID PRN #19.8 ml 12/29/20 [Rx Last Taken Unknown] furosemide 20 mg tablet 20 mg PO DAILY #90 tab 01/13/21 [Rx Last Taken Unknown] acetaminophen 300 mg-codeine 30 mg tablet 0.5 tab PO BID PRN #30 tab 08/21/21 [Rx Last Taken Unknown] alendronate 70 mg tablet 70 mg PO QWEEK 90 Days #13 tab 08/21/21 [Rx Last Taken Unknown] budesonide-formoterol HFA 160 mcg-4.5 mcg/actuation aerosol inhaler 2 puff INHALATION BID 90 Days #1 ea 08/21/21 [Rx Last Taken Unknown] levocetirizine 5 mg tablet 5 mg PO DAILY PRN #90 tab 08/21/21 [Rx Last Taken Unknown] Allergy/AdvReac Type Severity Reaction Status Date / Time aspirin Allergy Intermediate Bleeding Verified 09/18/21 06:43 bacitracin Allergy Intermediate blisters Verified 09/18/21 06:43 [From Neosporin ([id number])] morphine Allergy Intermediate blisters Verified 09/18/21 06:43 on arm neomycin Allergy Intermediate blisters Verified 09/18/21 06:43 [From Neosporin ([id number])] polymyxin B Allergy Intermediate blisters Verified 09/18/21 06:43 [From Neosporin ([id number])] Iodine and Iodide Containing Allergy Unknown Unknown Verified 09/18/21 06:43 Produc Penicillins Allergy Hives Verified 09/18/21 06:43 Sulfa (Sulfonamide Allergy Hives Verified 09/18/21 06:43 Antibiotics) Family History Father Colon cancer Myocardial infarction, Onset Age: 74 Mother Cancer ovarian Brother Heart disease Parkinsons Sister Heart disease Surgical History History of ankle surgery History of hip surgery pinched nerve removed S/P removal of lung Status post partial removal of lung Social History Smoking Status: Never smoker alcohol intake: never substance use type: does not use what type of physical activity do you participate in: none ROS ROS ED Constitutional Constitutional ED: Denies chills or fever(s) Eyes Eyes: Reports blurry vision; Denies diplopia ENT ENT ED: Denies rhinorrhea or sore throat Cardiovascular Cardiovascular: Reports chest pain; Denies palpitations Respiratory/Chest Respiratory/Chest: Reports cough and dyspnea Gastrointestinal Gastrointestinal: Denies nausea or vomiting Genitourinary Genitourinary ED: Denies dysuria or hematuria Musculoskeletal Musculoskeletal: Denies back pain or neck pain Integumentary Denies abscess or rash Neurologic Neurologic: Reports headache(s); Denies weakness Allergic/Immunologic Allergic/Immunologic ED: Denies mouth swelling or urticaria EXAM Physical Exam Const Vital Signs: 09/18/21 06:39 09/18/21 06:43 09/18/21 07:24 Temperature 98.2 F 98.2 F Temperature Source Temporal Temporal Pulse Rate 100 100 Respiratory Rate 18 18 Respiratory Effort Blood Pressure 142/75 H 143/67 H 143/67 H Blood Pressure Mean 97 92 92 Blood Pressure Source Blood Pressure Position Blood Pressure Location Pulse Ox 90 99 99 Oxygen Delivery Method Nasal Cannula Nasal Cannula Oxygen Flow Rate (L/min) 3 3 09/18/21 07:36 09/18/21 07:37 09/18/21 07:43 Temperature 98.2 F Temperature Source Temporal Pulse Rate 100 Respiratory Rate 18 Respiratory Effort Short of Breath Labored Short of Breath Blood Pressure 143/67 H Blood Pressure Mean 92 Blood Pressure Source Blood Pressure Position Blood Pressure Location Pulse Ox 99 Oxygen Delivery Method Nasal Cannula Nasal Cannula Oxygen Flow Rate (L/min) 2 2 09/18/21 08:02 09/18/21 09:20 09/18/21 10:23 Temperature 98.9 F Temperature Source Temporal Pulse Rate 93 84 Respiratory Rate 24 H 25 H Respiratory Effort Blood Pressure 112/52 L 123/66 H Blood Pressure Mean 72 85 Blood Pressure Source Blood Pressure Position Blood Pressure Location Pulse Ox 92 90 Oxygen Delivery Method Nasal Cannula Nasal Cannula Nasal Cannula Oxygen Flow Rate (L/min) 1 1 09/18/21 10:39 09/18/21 11:04 09/18/21 12:00 Temperature 98.9 F Temperature Source Temporal Pulse Rate 84 88 Respiratory Rate 25 H 18 Respiratory Effort Blood Pressure 123/66 H 110/59 L Blood Pressure Mean 85 76 Blood Pressure Source Blood Pressure Position Blood Pressure Location Pulse Ox 94 94 95 Oxygen Delivery Method Nasal Cannula Nasal Cannula Room Air Oxygen Flow Rate (L/min) 2 2 09/18/21 13:59 09/18/21 14:19 09/18/21 14:22 Temperature 98 F Temperature Source Temporal Pulse Rate 87 82 84 Respiratory Rate 20 H 18 20 H Respiratory Effort Blood Pressure 158/68 H 136/58 H 136/58 H Blood Pressure Mean 98 84 84 Blood Pressure Source Monitor Blood Pressure Position Blood Pressure Location Pulse Ox 93 93 93 Oxygen Delivery Method Nasal Cannula Nasal Cannula Oxygen Flow Rate (L/min) 2 09/18/21 14:30 09/18/21 14:31 09/18/21 14:37 Temperature 98 F Temperature Source Temporal Pulse Rate 83 78 Respiratory Rate 20 H 18 Respiratory Effort Blood Pressure 121/65 H 145/65 H 145/65 H Blood Pressure Mean 83 91 Blood Pressure Source Monitor Blood Pressure Position Blood Pressure Location Pulse Ox 97 93 Oxygen Delivery Method Nasal Cannula Nasal Cannula Oxygen Flow Rate (L/min) 2 2 09/18/21 14:52 09/18/21 15:00 09/18/21 15:07 Temperature 98 F 98 F Temperature Source Temporal Temporal Pulse Rate 87 84 78 Respiratory Rate 18 18 20 H Respiratory Effort Blood Pressure 121/65 H 121/65 H 121/65 H Blood Pressure Mean 83 83 83 Blood Pressure Source Monitor Monitor Blood Pressure Position Supine Blood Pressure Location Right Arm Pulse Ox 99 94 96 Oxygen Delivery Method Nasal Cannula Nasal Cannula Nasal Cannula Oxygen Flow Rate (L/min) 2 2 2 09/18/21 15:22 09/18/21 15:30 09/18/21 15:37 Temperature 98 F 98 F 98 F Temperature Source Temporal Temporal Temporal Pulse Rate 80 85 82 Respiratory Rate 18 20 H 18 Respiratory Effort Blood Pressure 121/65 H 132/99 H 132/99 H Blood Pressure Mean 83 110 110 Blood Pressure Source Monitor Monitor Monitor Blood Pressure Position Supine Supine Supine Blood Pressure Location Right Arm Right Arm Right Arm Pulse Ox 96 94 94 Oxygen Delivery Method Nasal Cannula Nasal Cannula Nasal Cannula Oxygen Flow Rate (L/min) 2 2 2 Positive well nourished and well developed General Appearance ED: well developed HEENT Reports moist mucous membranes Neck supple and no JVD Resp normal respiratory effort Cardio regular rate and regular rhythm GI non-tender Palpation: soft Extremity Extremity Narrative: There is 2+ edema of the lower extremities to the knees bilaterally. General Extremety ED: Yes edema; Negative for tenderness General Extremity: edema Neuro oriented x3, CN's II-XII intact bilaterally and no sensory deficits noted Sensorium / Orientation: alert Motor Exam: strength 5/5 throughout MDM MDM MDM Narrative Medical decision making narrative: EKG was obtained. On my interpretation, there is normal sinus rhythm with occasional PACs. UT interval, QRS interval, QTC intervals were all normal. [place] was normal. There are nonspecific ST-T wave changes in leads I and aVL. CBC was within normal limits. Comprehensive metabolic profile shows slightly elevated AST of 134 and ALT of 161. Initial high-sensitivity troponin was normal at 62. Lactate was normal at 1.5. BNP was elevated at 596.8. Patient was given a dose of Decadron here. Patient was given a dose of Lasix here. Portable chest x-ray was obtained. There is 1 vie w. On my interpretation, there is previous left pneumonectomy. There is right basilar infiltrate and small right pleural effusion. Bony thorax is normal. Radiologist also interpreted the x-ray and agrees. Case was discussed with the hospitalist. He will admit the patient to his service. Patient and family understood and were agreeable with the plan. Prior to the patient being admitted, patient fell asleep and then woke up and was confused, unable to talk, and having bilateral upper and lower extremity weakness. Fingerstick blood sugar was 107. Because of this a stroke alert was called. Initial CT scan of the brain does not show any acute bleeding or infarct. Stroke neurologist evaluated the patient remotely. He recommended giving the patient TPA. Family was advised of the risks and benefits. The family is agreeable to administering TPA. This was ordered. CTA of the brain was obtained. There is no large vessel occlusion. There is 70% stenosis of the right internal carotid and 50% stenosis of the left internal carotid artery. Because of this, hospitalist recommended transfer the patient to [facility]. Case was discussed with Dr. Pelletier, stroke neurologist, he accepted the patient to be transferred there. Patient will be transferred to the emergency department there. Family understands and is agreeable with the plan. All questions were answered. Lab Data Attestation: I reviewed the patient's lab results. Labs: Laboratory Results - last 24 hr 09/18/21 09/18/21 09/18/21 08:10 08:10 08:10 WBC 10.2 RBC 4.62 Hgb 14.5 Hct 46.1 MCV 99.8 H MCH 31.4 MCHC 31.5 L RDW Std Deviation 57.7 H RDW Coeff of James 15.8 H Plt Count 209 MPV 10.8 Immature Gran % (Auto) 0.900 Neut % (Auto) 86.0 H Lymph % (Auto) 1.5 L Osborne % (Auto) 11.4 H Eos % (Auto) 0.0 Baso % (Auto) 0.2 Absolute Neuts (auto) 8.8 H Absolute Lymphs (auto) 0.15 L Nucleated RBC % 0.2 PT INR APTT Sodium 140 Potassium 4.2 Chloride 102 Carbon Dioxide 35.0 H Anion Gap 3 L BUN 36 H Creatinine 0.56 Estim Creat Clear Calc 35.55 Est GFR (MDRD) Af Amer 136 Est GFR (MDRD) Non-Af 112 BUN/Creatinine Ratio 64.6 H Glucose 135 H Lactic Acid 1.5 Calcium 8.8 Total Bilirubin 0.80 AST 134 H ALT 161 H Alkaline Phosphatase 75 Troponin I High Sens 62 H B-Natriuretic Peptide Total Protein 7.0 Albumin 3.4 Globulin 3.6 Albumin/Globulin Ratio 0.9 POC Glucose 09/18/21 09/18/21 09/18/21 08:10 10:20 13:46 WBC RBC Hgb Hct MCV MCH MCHC RDW Std Deviation RDW Coeff of James Plt Count MPV Immature Gran % (Auto) Neut % (Auto) Lymph % (Auto) Osborne % (Auto) Eos % (Auto) Baso % (Auto) Absolute Neuts (auto) Absolute Lymphs (auto) Nucleated RBC % PT INR APTT Sodium Potassium Chloride Carbon Dioxide Anion Gap BUN Creatinine Estim Creat Clear Calc Est GFR (MDRD) Af Amer Est GFR (MDRD) Non-Af BUN/Creatinine Ratio Glucose Lactic Acid Calcium Total Bilirubin AST ALT Alkaline Phosphatase Troponin I High Sens 97 H B-Natriuretic Peptide 596.8 H Total Protein Albumin Globulin Albumin/Globulin Ratio POC Glucose 107 09/18/21 15:15 WBC RBC Hgb Hct MCV MCH MCHC RDW Std Deviation RDW Coeff of James Plt Count MPV Immature Gran % (Auto) Neut % (Auto) Lymph % (Auto) Osborne % (Auto) Eos % (Auto) Baso % (Auto) Absolute Neuts (auto) Absolute Lymphs (auto) Nucleated RBC % PT 14.0 INR 1.1 APTT 26.1 Sodium Potassium Chloride Carbon Dioxide Anion Gap BUN Creatinine Estim Creat Clear Calc Est GFR (MDRD) Af Amer Est GFR (MDRD) Non-Af BUN/Creatinine Ratio Glucose Lactic Acid Calcium Total Bilirubin AST ALT Alkaline Phosphatase Troponin I High Sens B-Natriuretic Peptide Total Protein Albumin Globulin Albumin/Globulin Ratio POC Glucose Radiography Chest X-Ray - ED: 1 View, Read by ED Physician, Read by Radiologist and Right Infiltrate Diagnostic Testing: Clinical Impression(s) from Imaging Studies Chest X-Ray 09/18/21 08:45 IMPRESSION: Right basilar infiltrate with small right pleural effusion. Stable postsurgical changes in the left hemithorax with volume loss. Electronically Signed: Milton Hayes MD at 9:05 EST , Service support , Brain CT 09/18/21 13:53 IMPRESSION: Chronic involutional changes of the brain. Sinusitis. N.B. : The above Results were Read Back by Milton Hayes MD to Dr Beata DO, and understanding confirmed on 09/18/2021 14:10:31 (ET). Electronically Signed: Milton Hayes MD at 14:11 EST , Service support , ADDENDUM: 09/18/21 1418 IMPRESSION: Chronic involutional changes of the brain. Sinusitis. N.B. : The above Results were Read Back by Milton Hayes MD to Dr Beata DO, and understanding confirmed on 09/18/2021 14:10:31 (ET). Electronically Signed: Milton Hayes MD at 14:11 EST , Service support , EKG Initial EKG: Attestation: I personally reviewed and interpreted this EKG as follows: Interpretation: Sinus Rhythm (With occasional PACs with a rate of 91) and Non-Specific ST Changes Prior EKG tracings: available for review Prior: Unchanged (08/21/2021) Follow-up EKG: Attestation: I personally reviewed and interpreted this EKG as follows: Interpretation: Sinus Rhythm (With occasional PACs with a rate of 86) and No Acute Injury Pattern Prior: Unchanged Critical Care Time Critical Care Time: Yes Critical care time (excluding procedures): 30-74 minutes (54), Including time spent:, Discussing w/Patient &/or Family/Glass Engraver, Discussing w/Consultants, Arranging Admission or Transfer and Performing Direct Patient Care at Bedside Discharge Plan Triage Chief Complaint: Fall Other Complaint: General Illness ED Provider: Mitch Cota Dx/Rx/DC Orders Clinical Impression: Acute stroke due to ischemia, Pneumonia due to COVID-19 virus, Pleural effusion, right Prescriptions: No Action (DME) spacer See Rx Instructions .ROUTE .MEDSUPPLY Qty: 1 RF: 0 multivitamin capsule 1 cap PO DAILY RF: 0 calcium carb,cit ER 600 mg calcium-vit D3 500 unit tablet,ext.release 600 mg calcium- 500 unit tablet extended release PO DAILY RF: 0 fluticasone propionate [Allergy Relief (fluticasone)] 50 mcg/actuation spray,suspension 2 spray INTRANASAL BID PRN (Reason: allergy symptoms) Qty: 19.8 RF: 5 azelastine 0.15 % (205.5 mcg) spray,non-aerosol 1 spray INTRANASAL BID Qty: 30 RF: 11 albuterol sulfate [Ventolin HFA] 90 mcg/actuation HFA aerosol inhaler 2 puff INHALATION Q4H PRN (Reason: shortness of breath or wheezing) Qty: 18 RF: 6 budesonide-formoterol [Symbicort] 160-4.5 mcg/actuation HFA aerosol inhaler 2 puff INHALATION BID 90 Days Qty: 1 RF: 3 levocetirizine [Xyzal] 5 mg tablet 5 mg PO DAILY PRN (Reason: allergy symptoms) Qty: 90 RF: 3 alendronate [Fosamax] 70 mg tablet 70 mg PO QWEEK 90 Days Qty: 13 RF: 3 acetaminophen-codeine 300-30 mg tablet 0.5 tab PO BID PRN (Reason: pain) Qty: 30 RF: 0 Oxygen, Home [Home Oxygen] 2 - 4 lpm NASAL CONT Qty: 1 RF: 0 buspirone 5 mg tablet See Rx Instructions .ROUTE .COMPLEX Qty: 60 RF: 3 furosemide 20 mg tablet 20 mg PO DAILY Qty: 90 RF: 3 Primary Care Provider: Marco A Barbosa Referrals: Marco A Barbosa MD [Primary Care Provider] - Disposition Disposition: Acute Care Hospital Discharge Location: [facility]
[2021-09-18 08:20] LABS: Absolute Lymphocyte Count 0.15 X10^3/uL (0.83-4.51); Absolute Neutrophil Count 8.8 X10^3/uL (2.0-7.7); Basophil# 0.02 X10^3/uL; Basophil% 0.2 % (0-1); Differential Indicated SCAN CRITERIA MET; Hematocrit 46.1 % (37-47); Hemoglobin 14.5 g/dL (12.0-15.0); Lymphocyte # 0.15 X10^3/ul (0.83-4.51); Lymphocyte % 1.5 % (19-41); Mean Corp Hgb Conc 31.5 g/dL (32-36); Mean Corpuscular Hgb 31.4 pg (27.0-32.0); Mean Corpuscular Volume 99.8 fL (81-99); Mean Platelet Vol. 10.8 fl (6.2-12.0); Monocyte# 1.17 X10^3/uL; Monocyte% 11.4 % (0-10); NRBC Flagged by Analyzer 0.2 % (0-5); Neutrophil # 8.79 X10^3/uL (2.7-7.7); POSITIVE DIFFERENTIAL YES; Platelet Count 209 K/mm3 (150-450); RBC Distribution Width CV 15.8 % (11.6-14.6); RBC Distribution Width SD 57.7 fl (35.1-43.9); Red Blood Count 4.62 M/mm3 (4.2-5.4); White Blood Count 10.2 K/mm3 (4.4-11.0)
[2021-09-18 08:37] LABS: ALB/GLOB Ratio 0.9 RATIO (0.9-2.4); AST(SGOT) 134 U/L (15-37); Alanine Aminotransfer ALT/SGPT 161 U/L (13-56); Albumin, Serum 3.4 g/dL (3.2-5.0); Alkaline Phosphatase 75 U/L (45-117); Anion Gap 3 (5-15); BUN 36 mg/dL (7-18); BUN/Creat Ratio 64.6 RATIO (10-20); Calcium,Total 8.8 mg/dL (8.5-10.1); Chloride 102 mmol/L (98-107); Creatinine, Serum 0.56 mg/dL (0.55-1.02); EST Glomerular Filtration Rate 112 mL/min (>60); Est Glom Filt Rate - Afr Amer 136 mL/min (>60); Estimated Creatinine Clearance 35.55 ml/min; Globulin 3.6 g/dL (2.2-4.2); Glucose 135 mg/dL (74-106); Potassium 4.2 mmol/L (3.5-5.1); Sodium Level 140 mmol/L (136-145); Troponin-I HS 62 pg/mL (3.0-54.0)
[2021-09-18 08:43] LABS: Lactic Acid 1.5 mmol/L (0.4-1.9)
--- NOTE | 2021-09-18 08:45 | RAD_ITS ---
STUDY: X-RAY CHEST REASON FOR EXAM: Female, 76 years old. Dyspnea TECHNIQUE: Single AP portable view of the chest. COMPARISON: Comparison is made with prior study dated 10/11/2019. FINDINGS: EKG electrodes are seen. There is evidence of prior thoracoplasty of the left hemithorax with calcified pleural plaques and surgical clips. This is unchanged. Since prior study, there has been progressive infiltrate in the right lower lobe with a small right pleural effusion. Normal size heart. Normal mediastinum and linda. Normal visualized pulmonary arteries. Normal visualized aortic arch and descending thoracic aorta. There are diffuse degenerative changes of the visualized thoracic spine. Normal visualized ribs, clavicles, and shoulders. There is no demonstrated abnormality of the visualized soft tissue structures of the upper abdomen. RAD/Chest 1 View (Portable) IMPRESSION: Right basilar infiltrate with small right pleural effusion. Stable postsurgical changes in the left hemithorax with volume loss. Electronically Signed: Milton Hayes MD at 9:05 EST , Service support ,
[2021-09-18 09:06] LABS: BNP,B-Type NATRIURETIC PEPTIDE 596.8 pg/mL (0-100)
--- NOTE | 2021-09-18 10:01 | HP.PCM.HOS_ITS ---
HPI - General General Date of Admission: 09/18/21 Date of Service: 09/18/21 Chief Complaint: Generalized weakness, shortness of breath HPI Narrative JACKSON NORTH, is a 76 F who presented to the emergency department with progressive generalized weakness and shortness of breath. Patient has been apparently had symptoms for Covid for which he was tested and result came back positive on the day of patient's admission. Patient's daughter did check him for the patient and found patient lying on the floor. Was brought to the emergency department as a result. Her COVID-19 assay came back positive. Chest x-ray obtained demonstrated right basilar infiltrate with small right pleural effusion. Decision was made to admit patient to the regular nursing floor for subsequent management Whilst patient was waiting in the ED to be transferred to a [facility] bed patient was found to be dysarthric and subsequently aphasic with weakness in both legs. A stroke alert was called. Patient was evaluated by [facility] neurology. TPA was advised once patient his CT came back negative for acute hemorrhagic stroke. Decision was subsequently made to admit patient to ICU instead. [facility] Medical History Arrhythmia Chronic bronchitis Fatigue Flu vaccine need Frequent headaches History of fracture of ankle History of hip fracture History of pneumonia Hypoglycemia Osteoporosis Positive colorectal cancer screening using Cologuard test Positive colorectal cancer screening using Cologuard test Seasonal allergies Home Medications Oxygen, Home [Home Oxygen] 2 - 4 lpm NASAL CONT #1 unit 10/14/19 [Rx Last Taken Unknown] spacer #1 ea 11/26/19 [Rx Last Taken Unknown] buspirone 5 mg tablet See Rx Instructions .ROUTE .COMPLEX #60 tab 12/15/19 [Rx Last Taken Unknown] calcium carb,cit ER 600 mg-vit D3 12.5 mcg (500 unit) tablet,ext.rel tab PO DAILY tab 01/25/20 [History Last Taken Unknown] multivitamin 1 cap PO DAILY 01/25/20 [History Last Taken Unknown] albuterol sulfate 90 mcg/actuation aerosol inhaler 2 puff INHALATION Q4H PRN #18 gm 12/29/20 [Rx Last Taken Unknown] azelastine 205.5 mcg (0.15 %) nasal spray 1 spray INTRANASAL BID #30 ml 12/29/20 [Rx Last Taken Unknown] fluticasone propionate 50 mcg/actuation nasal spray,suspension 2 spray INTRANASAL BID PRN #19.8 ml 12/29/20 [Rx Last Taken Unknown] furosemide 20 mg tablet 20 mg PO DAILY #90 tab 01/13/21 [Rx Last Taken Unknown] acetaminophen 300 mg-codeine 30 mg tablet 0.5 tab PO BID PRN #30 tab 08/21/21 [Rx Last Taken Unknown] alendronate 70 mg tablet 70 mg PO QWEEK 90 Days #13 tab 08/21/21 [Rx Last Taken Unknown] budesonide-formoterol HFA 160 mcg-4.5 mcg/actuation aerosol inhaler 2 puff INHALATION BID 90 Days #1 ea 08/21/21 [Rx Last Taken Unknown] levocetirizine 5 mg tablet 5 mg PO DAILY PRN #90 tab 08/21/21 [Rx Last Taken Unknown] Allergy/AdvReac Type Severity Reaction Status Date / Time aspirin Allergy Intermediate Bleeding Verified 09/18/21 06:43 bacitracin Allergy Intermediate blisters Verified 09/18/21 06:43 [From Neosporin ([id number])] morphine Allergy Intermediate blisters Verified 09/18/21 06:43 on arm neomycin Allergy Intermediate blisters Verified 09/18/21 06:43 [From Neosporin ([id number])] polymyxin B Allergy Intermediate blisters Verified 09/18/21 06:43 [From Neosporin ([id number])] Iodine and Iodide Containing Allergy Unknown Unknown Verified 09/18/21 06:43 Produc Penicillins Allergy Hives Verified 09/18/21 06:43 Sulfa (Sulfonamide Allergy Hives Verified 09/18/21 06:43 Antibiotics) Family History Father Colon cancer Myocardial infarction, Onset Age: 74 Mother Cancer ovarian Brother Heart disease Parkinsons Sister Heart disease Surgical History History of ankle surgery History of hip surgery pinched nerve removed S/P removal of lung Status post partial removal of lung Social History Smoking Status: Never smoker alcohol intake: never substance use type: does not use what type of physical activity do you participate in: none ROS ROS Narrative GENERAL: Generalized weakness anorexia HEENT: denies headache, sinus congestion, RESPIRATORY: shortness of breath, CARDIAC: denies chest pain, palpitations, GASTROINTESTINAL: denies abdominal pain, GENITOURINARY: denies dysuria, urgency, EXTREMITY: denies swelling MUSCULOSKELETAL: denies current joint pain NEUROLOGIC: denies focal numbness, HEMATOLOGIC: denies easy bruising INTEGUMENT: denies rashes PSYCHIATRIC: denies suicidal ideation Vital Signs Vital Signs Vital Signs: 09/18/21 06:39 09/18/21 06:43 09/18/21 07:24 Temperature 98.2 F 98.2 F Temperature Source Temporal Temporal Pulse Rate 100 100 Respiratory Rate 18 18 Respiratory Effort Blood Pressure 142/75 H 143/67 H 143/67 H Blood Pressure Mean 97 92 92 Pulse Ox 90 99 99 Oxygen Delivery Method Nasal Cannula Nasal Cannula Oxygen Flow Rate (L/min) 3 3 09/18/21 07:36 09/18/21 07:37 09/18/21 07:43 Temperature 98.2 F Temperature Source Temporal Pulse Rate 100 Respiratory Rate 18 Respiratory Effort Short of Breath Labored Short of Breath Blood Pressure 143/67 H Blood Pressure Mean 92 Pulse Ox 99 Oxygen Delivery Method Nasal Cannula Nasal Cannula Oxygen Flow Rate (L/min) 2 2 09/18/21 08:02 09/18/21 09:20 Temperature Temperature Source Pulse Rate 93 Respiratory Rate 24 H Respiratory Effort Blood Pressure 112/52 L Blood Pressure Mean 72 Pulse Ox 92 Oxygen Delivery Method Nasal Cannula Nasal Cannula Oxygen Flow Rate (L/min) 1 Weight Weight: 54.431 kg Body Mass Index (BMI) 22.6 Physical Exam Narrative GENERAL: Appears ill looking HEENT: Atraumatic; EYES; Anicteric, Normal Conjunctiva NECK; supple, normal thyroid, RESPIRATORY: Diminished to auscultation CARDIOVASCULAR: Regular S1 S2, GI: soft, normoactive bowel sounds, : No Renal angle tenderness; EXTREMITIES: No edema, no clubbing, MUSCULOSKELETAL: no muscle waisting NEURO: Awake; no lateralizing signs. SKIN: No Rash PSYCH; Flat affect Results Lab / Micro Data Result Diagrams: 09/18/21 08:10 09/18/21 08:10 Labs: Laboratory Results - last 24 hr 09/18/21 08:10: WBC 10.2, RBC 4.62, Hgb 14.5, Hct 46.1, MCV 99.8 H, MCH 31.4, MCHC 31.5 L, RDW Std Deviation 57.7 H, RDW Coeff of James 15.8 H, Plt Count 209, MPV 10.8, Immature Gran % (Auto) 0.900, Neut % (Auto) 86.0 H, Lymph % (Auto) 1.5 L, Bacon % (Auto) 11.4 H, Eos % (Auto) 0.0, Baso % (Auto) 0.2, Absolute Neuts (auto) 8.8 H, Absolute Lymphs (auto) 0.15 L, Nucleated RBC % 0.2 09/18/21 08:10: Sodium 140, Potassium 4.2, Chloride 102, Carbon Dioxide 35.0 H, Anion Gap 3 L, BUN 36 H, Creatinine 0.56, Estim Creat Clear Calc 35.55, Est GFR (MDRD) Af Amer 136, Est GFR (MDRD) Non-Af 112, BUN/Creatinine Ratio 64.6 H, Glucose 135 H, Calcium 8.8, Total Bilirubin 0.80, AST 134 H, ALT 161 H, Alkaline Phosphatase 75, Troponin I High Sens 62 H, Total Protein 7.0, Albumin 3.4, Globulin 3.6, Albumin/Globulin Ratio 0.9 09/18/21 08:10: Lactic Acid 1.5 09/18/21 08:10: B-Natriuretic Peptide 596.8 H Micro: Microbiology 09/18/21 08:40 Nasal Secretion SARS-CoV-2 Antigen (Rapid) - Final SARS-CoV-2 (COVID 19) Radiology Impression Chest X-Ray 09/18/21 08:45 IMPRESSION: Right basilar infiltrate with small right pleural effusion. Stable postsurgical changes in the left hemithorax with volume loss. Electronically Signed: Milton Hayes MD at 9:05 EST , Service support , Assessment & Plan Assessment/Plan (1) Acute stroke due to ischemia: (2) Pneumonia due to COVID-19 virus: PLAN: Patient is a 76-year-old lady presented with generalized weakness diagnosed with COVID-19 pneumonia. Whilst in the emergency department patient did develop strokelike symptoms resulting in patient receiving TPA 1. Acute COVID-19 pneumonia ?Patient has been admitted to the intensive care unit (initially admitted to [facility] floor) started on Decadron in addition to supplemental oxygen 2. Suspected acute CVA ?Patient did receive TPA in the ER admitted to the intensive care unit where patient is being managed per protocol with consultation placed to [facility] neurology 3. Bronchiectasis ?We will encourage the use of incentive spirometry. 4. Pulmonary hypertension ?Aerosol treatment as needed 5. Seasonal allergies ?Discontinue symptomatic treatment 6. DVT prophylaxis ?SCDs for now since patient did receive TPA Total critical care time spent evaluating patient, review of diagnostic data, subsequent discussion with other providers involved in patient's care as well as nursing staff; 75 minutes Advance planning; did discuss with the patient and family regarding advanced directives as well as CODE STATUS. Did explain the various scenarios involved ( FULL CODE, DNR CCA, DNR CCA with no intubation, and DNR CC and what each meant) patient elected to full code with CPR and intubation if needed. Order was placed. Time spent on discussion 18 minutes. Charges/Coding Procedures Hospitalists Procedures: 65880 Advncd Care Plan 30 Min Multi Select Codes Hospitalists' Procedures Procedures: 47517 Critial Care 1st Hr and 91565 Critial Care Addl 30 Min
[2021-09-18] MEDS: Furosemide 20 MG/2 ML VIAL IV (10:36)
[2021-09-18] MEDS: dexAMETHasone 4 MG/ML Vial 6 MG IV (10:36)
[2021-09-18 10:48] LABS: Troponin-I HS 97 pg/mL (3.0-54.0)
--- NOTE | 2021-09-18 13:53 | EKG12_ITS ---
Test Reason : STROKE ALERT Blood Pressure : / mmHG Vent. Rate : 086 BPM Atrial Rate : 086 BPM P-R Int : 130 ms QRS Dur : 064 ms QT Int : 376 ms P-R-T Axes : 054 068 083 degrees QTc Int : 449 ms Sinus rhythm with Premature atrial complexes Otherwise normal ECG Confirmed by YANETH MORENO, CHARU ([id number]), industrial editor TANO MARIE ([id number]) on 09/22/2021 1:08:26 PM Referred By: MAKENNA Confirmed By:CHARU WOLFE MD
--- NOTE | 2021-09-18 13:53 | CT_ITS ---
STUDY: CT HEAD STROKE PROTOCOL W/O CONTRAST INJECTION REASON FOR EXAM: Female, 76 years old. Neuro deficit, acute, stroke suspected RADIATION DOSAGE (If Supplied By Facility): CTDIvol = ( ) mGy, DLP = ( ) mGycm TECHNIQUE: Transaxial CT imaging of the brain was performed without administration of intravenous contrast material. Individualized dose optimization techniques were used for this CT. COMPARISON: No relevant priors. FINDINGS: Normal soft tissue structures. Normal calvarium. Normal size ventricles and extra-axial spaces for the patient''s age. Normal white matter tracts of the cerebral hemispheres. Normal basal ganglia and thalami. Normal brainstem. Normal cerebellum. There is no intracranial hemorrhage. There are no findings of an acute ischemic infarction. Atherosclerotic calcific plaques of the left vertebral artery and cavernous portions of the internal carotid artery bilaterally.. Partial opacification of the left maxillary sinus. Mucosal thickening of the ethmoid sinus and left frontal sinus. CT/STROKE Brain/Head without Cont IMPRESSION: Chronic involutional changes of the brain. Sinusitis. N.B. : The above Results were Read Back by Milton Hayes MD to Dr Beata DO, and understanding confirmed on 09/18/2021 14:10:31 (ET). Electronically Signed: Milton Hayes MD at 14:11 EST , Service support ,
--- NOTE | 2021-09-18 13:56 | CT_ITS ---
STUDY: CTA HEAD AND NECK WITH CONTRAST REASON FOR EXAM: Female, 76 years old. Neuro deficit, acute, stroke suspected RADIATION DOSAGE (If Supplied By Facility): CTDIvol = ( 20.64 ) mGy, DLP = ( 630.57 ) mGycm TECHNIQUE: CT angiography was performed with a multi-detector CT scanner. Data acquisition was obtained from the skull base through the vertex following intravenous administration of IV 75mL [id number]-[id number]. MIP images were reconstructed from the axial data set. Post-processing of the angiographic images was performed, with multiplanar reformation and 3D reconstruction. Individualized dose optimization techniques were used for this CT. COMPARISON: No relevant priors. FINDINGS: Normal bilateral petrous carotid arteries. There is calcified plaque formation of the right cavernous carotid artery, without a cross-sectional luminal stenosis. There is calcified plaque formation of the left cavernous carotid artery, without a cross-sectional luminal stenosis. Normal right A1 segments of the anterior cerebral artery. Normal left A1 segments of the anterior cerebral artery. Normal intact anterior communicating artery (ACOM). Normal bilateral A2 segments of the anterior cerebral arteries. Normal right M1 and M2 segments of the middle cerebral arteries, with a normal M1 bifurcation. Normal left M1 and M2 segments of the middle cerebral arteries, with a normal M1 bifurcation. Normal right posterior communicating artery (PCOM). Normal left posterior communicating artery (PCOM). Normal bilateral vertebral arteries. Normal basilar artery with a normal basilar bifurcation. The visualized bilateral superior cerebellar (SCA) arteries are normal. Normal bilateral P1, P2 and visualized P3 segments of the posterior cerebral arteries. There is no demonstrated aneurysm of the [place]. Cerebral atrophy. 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 AORTIC ARCH: There is atherosclerotic calcific plaque formation of the aortic arch and great vessels arising from the aortic arch, without a hemodynamically significant stenosis. There is a normal origin of the brachiocephalic, left common carotid, and left subclavian arteries. RIGHT CAROTID ARTERIES: Normal right common carotid artery (CCA). Normal right common carotid bulb. There is moderate atherosclerotic plaque formation of the origin of the right internal carotid artery with an estimated stenosis of 50-69% stenosis. Normal visualized cervical portion of the right internal carotid artery. Normal origin of the right external carotid artery (ECA). LEFT CAROTID ARTERIES: Normal left common carotid artery (CCA). Normal left common carotid bulb. There is mild atherosclerotic plaque formation of the origin of the left internal carotid artery with less than 50% cross sectional diameter stenosis. Normal visualized cervical portion of the left internal carotid artery. Normal origin of the left external carotid artery (ECA). VERTEBRAL ARTERIES: Normal bilateral vertebral arteries. CT/STROKE CTA Head AND Neck W/Con IMPRESSION: 50-70% stenosis at the origin of the right internal carotid artery. Less than 50% narrowing at the origin of the left internal carotid artery. N.B. : The above Results were Read Back by Milton Hayes MD to Mitch Cota DO, and understanding confirmed on 09/18/2021 15:20:58 (ET). Electronically Signed: Milton Hayes MD at 15:17 EST , Service support ,
--- NOTE | 2021-09-18 14:01 | CM.ED ---
SW Note Referral Source: Stroke Alert Referral Reason: Stroke Alert SW met with patient's daughter who was accompanying patient in the ED. Patient was taken to imaging for testing. Patient's daughter, Trina requested furnace charger for the battery and one was found. Trina reports no other issues or concerns. SW provided emotional support and remains available if needs arise. Plan: SW remains available if needs arise April WARE
[2021-09-18 14:45] LABS: Bedside Glucose 107 mg/dL (70-110)
[2021-09-18] MEDS: DiphenhydrAMINE 50 MG/ML Syringe 25 MG IV (14:45)
[2021-09-18 15:31] LABS: International Normalized Ratio 1.1
[2021-09-18 15:32] LABS: Partial Thromboplast Time 26.1 Seconds (24.1-36.2)
--- NOTE | 2021-09-18 16:10 | CHAPLAIN ---
Type of Pastoral Visit ___ Initial Visit ___ Follow-up Visit ___ On-call Visit ___ General Patient Visit ___ Spiritual Assessment ___ Family Conference ___ Bereavement _x__ Rapid Response ___ Code Blue ___ Other (describe below) Pastoral Care Referral From ___ Patient ___ Family ___ Nurse ___ Physician ___ Insurance Claims Representative ___ Spinning Lathe Operator Hydraulic _x__ Other (describe below) Sacrament/Intervention ___ Active listening ___ Anointing ___ Jew ___ Bereavement ___ Communion ___ Teresa exploration ___ ___ Life review ___ Prayer ___ Reconciliation ___ Sacrament of Sick _x__ Supportive presence ___ Wedding ___ Other (describe below) Pastoral Comments responded to stroke alert and found patient was in CT but daughter was in room; pt is in COVID precautions; offered support to daughter who said just a prayer is enough
--- NOTE | 2021-09-18 16:12 | ED.RN ---
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
== END 2021-09-18 16:18 | disposition short-term general hospital (02) ==
LOC: ED 13:53 → MS2 14:33 → ED 15:31
PROVIDERS: Internal Medicine; Emergency Provider Emergency Medicine; PCP Internal Medicine
DX: U07.1 COVID-19 (principal); J12.82 Pneumonia due to coronavirus disease 2019; J47.0 Bronchiectasis with acute lower respiratory infection; J90 Pleural effusion, not elsewhere classified; I63.9 Cerebral infarction, unspecified; R47.01 Aphasia; R53.1 Weakness; R29.710 NIHSS score 10; I65.23 Occlusion and stenosis of bilateral carotid arteries; I27.20 Pulmonary hypertension, unspecified; M81.0 Age-related osteoporosis without current pathological fracture; Z99.81 Dependence on supplemental oxygen
CPT/HCPCS: 70450; 70496; 70498; 71045; 80053; 82962; 83605; 83880; 84484; 85025; 85610; 85730; 87426; 93005; 96361; 96365; 96375; 96376; 99285; J2997; Q9967; A4216; J1940